=== PATIENT | male | born 1955 | race Caucasian/White ===

== ENCOUNTER 2020-10-13 15:51 | Inpatient (IN) ==
[2020-10-13] MEDS ORDERED: SODIUM CHLORIDE 0.9% 1000ML 1,000 ML IV SCH (16:45)
[2020-10-13] MEDS ORDERED: ONDANSETRON INJ 2 MG/ML 2 ML VIAL IV STA (16:46)
[2020-10-13] MEDS ORDERED: ACETAMINOPHEN 1,000 MG/100 ML VIAL IV STA (16:46)
--- NOTE | 2020-10-13 17:05 | Emergency Department Note ---
History of Present Illness General Chief complaint: Constipation Stated complaint: ABD PAIN - CONSTIPATED - VERY TIRED - BACK ACHE Time Seen by Provider: 10/13/20 16:18 Source: patient Mode of arrival: ambulatory Limitations: no limitations History of Present Illness Provider complaint: Abdominal pain, constipation Onset (ago): day(s) 5 Location: abdomen Radiation: back Severity: moderate Pain Consistency: + colicky Maximum Pain Intensity: 7 Relieved By: + none Exacerbated By: + none Associated symptoms: + chest pain and + loss of appetite Treatments prior to arrival: other This is a 65-year-old male who presents due to concern for abdominal pain and constipation over the course of the week. Patient states the very beginning of the week his usual dose of Ozempic was increased. This was originally started a month ago. He states since that time he had noticed constipation over the course of the week with hard small stools. He states he did have one normal bowel movement yesterday. States accompanying this he has had upper abdominal pain and burning. No prior history of GERD/PUD/IBS. No recent change in diet or significant change in activity. Patient states he is trying to stay well- hydrated. Patient does use marijuana daily. No alcohol use. No other recent medication changes. Denies any other recent illness. Denies blood with his bowel movements. States pain at times is also making him nauseated and does occasionally feel like it comes up into the chest. He states he did check the possible adverse reactions with Ozempic and constipation was listed. Pt seen during a time of high acuity and national emergency pandemic while wearing PPE. Home Medications Medication Instructions Recorded Confirmed Type Medical Marijuana 1 dose INHALATION DIRECTED PRN 05/22/20 10/13/20 History glipizide 5 mg PO QDL 05/22/20 10/13/20 History lisinopril 5 mg PO QDL 05/22/20 10/13/20 History aspirin 0 mg PO DIRECTED PRN 10/13/20 10/13/20 History semaglutide [Ozempic] 0.5 mg SUBCUT WK 10/13/20 10/13/20 History Allergies Allergy/AdvReac Type Severity Reaction Status Date / Time semaglutide [From Ozempic] AdvReac Mild pancreatiti Verified 10/13/20 22:56 s Past Med/Surg History Medical History Chronic back pain Diabetes mellitus, type 2 Hypertension Myocardial Infarction 15 yrs ago> no further issues/ no cath > does not follow cardio Osteoarthritis Prostate cancer 10 yrs ago > surgically removed > no chemo Spinal stenosis Surgical History History of arthroscopy right shoulder History of cataract surgery LEFT History of colonoscopy History of esophagogastroduodenoscopy (EGD) History of lumbar surgery History of prostatectomy History of tonsillectomy History of tooth extraction Family History Mother Diabetes Brother Diabetes Social History Smoking Status: Former smoker Tobacco Type: Cigarettes Second Hand Exposure: Yes ( SMOKES); Hx Alcohol Use: Yes Alcohol type: wine Hx Substance Use: No Preferred Language: Azerbaijani Communication Ability: Effective Moderate Needs Teacher Required: No Beliefs That Will Affect Care: None Current Living Situation: Spouse Feels Safe at Home: Yes Assistive Devices: None Review of Systems See HPI for pertinent positives & negatives. and A total of 10 systems reviewed and were otherwise negative Physical Exam Vital Signs Vital Signs - 24 hr 10/13/20 15:59 10/13/20 17:10 10/13/20 17:56 Temperature 36.8 C Temperature Source Temporal Artery Scan Pulse Rate 94 H 91 H 88 Pulse Rate from SpO2 Sensor 91 H 88 Respiratory Rate 20 19 19 Respiratory Effort / Characteristics Non-Labored Respiratory Depth Normal Blood Pressure 170/94 H 194/114 H 158/106 H Blood Pressure Mean 119 140 123 Pulse Oximetry 95 94 94 Oxygen Delivery Method Room Air Sepsis Recent Fever Within 48 Hours No Sepsis New/Unexplained Change in Mental Status N/A Sepsis Action Taken by Nursing No Action Required 10/13/20 18:00 10/13/20 19:10 10/13/20 19:30 Temperature Temperature Source Pulse Rate 83 88 86 Pulse Rate from SpO2 Sensor 84 88 85 Respiratory Rate 19 26 H 18 Respiratory Effort / Characteristics Respiratory Depth Blood Pressure 152/94 H 160/101 H 159/94 H Blood Pressure Mean 113 120 115 Pulse Oximetry 93 93 93 Oxygen Delivery Method Sepsis Recent Fever Within 48 Hours Sepsis New/Unexplained Change in Mental Status Sepsis Action Taken by Nursing 10/13/20 20:00 Temperature Temperature Source Pulse Rate 79 Pulse Rate from SpO2 Sensor 79 Respiratory Rate 14 Respiratory Effort / Characteristics Respiratory Depth Blood Pressure 155/96 H Blood Pressure Mean 115 Pulse Oximetry 94 Oxygen Delivery Method Sepsis Recent Fever Within 48 Hours Sepsis New/Unexplained Change in Mental Status Sepsis Action Taken by Nursing GENERAL: alert, uncomfortable appearing, well nourished, mild distress, non- toxic EYE EXAM: normal conjunctiva, PERRL and EOM's grossly intact OROPHARYNX: no exudate, no erythema, lips, buccal mucosa, and tongue normal and mucous membranes are moist NECK: supple, no nuchal rigidity, no adenopathy, non-tender LUNGS: Clear to auscultation. Normal chest wall mechanics, no w/r/r HEART: no murmurs, S1 normal and S2 normal ABDOMEN: abdomen soft, mild epigastric discomfort with palpation, normo-active bowel sounds, no masses, no rebound or guarding. Dull to percussion. BACK: Back is symmetrical on inspection and there is no deformity, no midline tenderness, no CVA tenderness. SKIN: no rashes and no bruising UPPER EXTREMITIES: upper extremities are grossly normal. FROM, nml pulses b/l. LOWER EXTREMITIES: No pitting edema. FROM, nml pulses b/l. NEURO EXAM: Normal sensorium, cranial nerves II-XII grossly intact, normal speech, no gross weakness of arms, no gross weakness of legs. Gross sensation intact. Course Course 1735: Updated patient on results, pain improved after medication. 1949: Patient updated on additional results. Still having pain. 2001: Discussed with Dr. Alvarado. Administered Medications Morphine Sulfate (Morphine Sulfate 4 Mg/Ml 1 Ml Carp\Vial) 4 mg IV Q4H PRN PRN Reason: Pain Stop: 10/27/20 22:12 Last Admin: 10/13/20 22:58 Dose: 4 mg Documented by: [id number] Discontinued Medications Famotidine (Famotidine 20mg/5ml Iv Push) 20 mg IV ONE STA Stop: 10/13/20 19:52 Last Admin: 10/13/20 20:09 Dose: 20 mg Documented by: [id number] Fentanyl Citrate (Fentanyl Citrate 100 Mcg/2 Ml Vial) 50 mcg IV Q15M PRN PRN Reason: Pain Stop: 10/27/20 17:36 Last Admin: 10/13/20 20:12 Dose: 50 mcg Documented by: [id number] Hydromorphone HCl (Hydromorphone Inj 0.5 Mg/0.5 Ml Syr) 0.5 mg IV NOW STA Stop: 10/13/20 19:52 Last Admin: 10/13/20 20:11 Dose: 0.5 mg Documented by: [id number] Sodium Chloride (Nss 1000ml) 1,000 mls @ 125 mls/hr IV .Q8H ERICA Stop: 11/12/20 16:44 Last Infusion: 10/13/20 22:26 Dose: 0 mls/hr Documented by: [id number] Admin: 10/13/20 17:09 Dose: 125 mls/hr Documented by: [id number] Acetaminophen (Ofirmev) 1,000 mg in 100 mls @ 400 mls/hr IV NOW STA Stop: 10/13/20 17:00 Last Infusion: 10/13/20 17:48 Dose: 0 mls/hr Documented by: [id number] Admin: 10/13/20 17:09 Dose: 400 mls/hr Documented by: [id number] Magnesium Sulfate/Dextrose (Magnesium Sulfate / D5w) 1 gm in 100 mls @ 100 mls/hr IV NOW STA Stop: 10/13/20 20:52 Last Infusion: 10/13/20 21:53 Dose: 0 mls/hr Documented by: [id number] Admin: 10/13/20 20:11 Dose: 100 mls/hr Documented by: [id number] Lactated Ringer's (Lr) 1,000 mls @ 200 mls/hr IV .Q5H ONE Stop: 10/14/20 01:19 Last Admin: 10/13/20 22:58 Dose: 200 mls/hr Documented by: [id number] Ioversol (Optiray 320 100ml) 95 ml IV ONCE ONE Stop: 10/13/20 18:37 Last Admin: 10/13/20 18:36 Dose: 95 ml Documented by: [id number] Lisinopril (Lisinopril 5 Mg Tab) 5 mg PO NOW ONE Stop: 10/13/20 20:13 Last Admin: 10/13/20 21:42 Dose: 5 mg Documented by: [id number] Morphine Sulfate (Morphine Sulfate 4 Mg/Ml 1 Ml Carp\Vial) 4 mg IV NOW STA Stop: 10/13/20 21:20 Last Admin: 10/13/20 21:42 Dose: 4 mg Documented by: [id number] Ondansetron HCl (Ondansetron Inj 2 Mg/Ml 2 Ml Vial) 4 mg IV NOW STA Stop: 10/13/20 16:47 Last Admin: 10/13/20 17:10 Dose: 4 mg Documented by: [id number] Polyethylene Glycol (Polyethylene (Miralax) 17 Gm Pack) 17 gm PO NOW STA Stop: 10/13/20 21:20 Last Admin: 10/13/20 21:42 Dose: 17 gm Documented by: [id number] Senna/Docusate Sodium (Docusate Sodium/Senna 50/8.6mg Tab) 1 tab PO NOW STA Stop: 10/13/20 20:21 Last Admin: 10/13/20 21:42 Dose: 1 tab Documented by: [id number] Medical Decision Making Differential Diagnosis Differential diagnoses includes but is not limited to gastritis, peptic ulcer disease, GERD, gallbladder disease, pancreatitis, small bowel obstruction, acute coronary syndrome, pericarditis, ischemic bowel, irritable bowel disease, irritable bowel syndrome, appendicitis, diverticulitis, malignancy, hernia, urinary tract infection, torsion, [/ectopic (if female)], perforation, trauma, infectious. Medical Records Attestation: I reviewed the patient's medical records. Home Medications Current Medication List: was personally reviewed by me Laboratory Data Attestation: I reviewed the patient's lab results. Result diagrams: 10/13/20 16:58 10/13/20 16:58 Lab Results 10/13/20 10/13/20 10/13/20 Range/Units 16:58 16:58 16:58 WBC 14.50 H (4.8-10.8) K/uL RBC 4.96 (4.7-6.1) M/uL Hgb 15.7 (14.0-18.0) g/dL Hct 43.7 (42-52) % MCV 88.1 (80-100) fL MCH 31.7 (25-34) pg MCHC 35.9 (32-36) g/dL RDW Std Deviation 40.1 (36.4-46.3) fL RDW Coeff of [place]ola 12.6 (11.5-14.5) % Plt Count 310 (130-400) K/uL MPV 10.9 H (7.4-10.4) fL Immature Gran % (Auto) 0.3 % Neut % (Auto) 68.3 % Lymph % (Auto) 23.0 % [place] % (Auto) 7.4 % Eos % (Auto) 0.9 % Baso % (Auto) 0.1 % Neut # (Auto) 9.90 H (1.4-6.5) K/uL Lymph # (Auto) 3.33 (1.2-3.4) K/uL [place] # (Auto) 1.08 H (0.11-0.59) K/uL Eos # (Auto) 0.13 (0-0.5) K/uL Baso # (Auto) 0.02 (0-0.2) K/uL Immature Gran # (Auto) 0.04 H (0.00-0.02) K/uL Sodium 132 L (136-145) mmol/L Potassium 4.0 (3.5-5.1) mmol/L Chloride 99 (98-107) mmol/L Carbon Dioxide 29 (21-32) mmol/L Anion Gap 4.0 (3-11) BUN 13 (7-18) mg/dl Creatinine 0.85 (0.6-1.4) mg/dl Est Cr Clr Drug Dosing 95.5 ml/min Est GFR ( Amer) 105.2 ml/min Est GFR (Non-Af Amer) 90.8 ml/min BUN/Creatinine Ratio 15.4 (10-20) Glucose 194 H (70-99) mg/dl Lactate 1.5 (0.4-2.0) mmol/L Calcium 9.2 (8.5-10.1) mg/dl Magnesium 1.7 L (1.8-2.4) mg/dl Total Bilirubin 0.4 (0.2-1) mg/dl AST 14 L (15-37) U/L ALT 32 (12-78) U/L Alkaline Phosphatase 108 (45-117) U/L Troponin I < 0.015 (0-0.045) ng/ml NT-Pro-B Natriuret Pep 54 (0-900) pg/ml Total Protein 7.6 (6.4-8.2) gm/dl Albumin 3.7 (3.4-5.0) gm/dl Globulin 3.9 (2.5-4.0) gm/dl Albumin/Globulin Ratio 0.9 (0.9-2) Triglycerides 362 H (0-150) mg/dl Lipase 774 H (73-393) U/L COVID-19 Eval Order SARS-CoV-2 (PCR) (Negative) 10/13/20 10/13/20 Range/Units 20:17 20:17 WBC (4.8-10.8) K/uL RBC (4.7-6.1) M/uL Hgb (14.0-18.0) g/dL Hct (42-52) % MCV (80-100) fL MCH (25-34) pg MCHC (32-36) g/dL RDW Std Deviation (36.4-46.3) fL RDW Coeff of Paola (11.5-14.5) % Plt Count (130-400) K/uL MPV (7.4-10.4) fL Immature Gran % (Auto) % Neut % (Auto) % Lymph % (Auto) % [place] % (Auto) % Eos % (Auto) % Baso % (Auto) % Neut # (Auto) (1.4-6.5) K/uL Lymph # (Auto) (1.2-3.4) K/uL [place] # (Auto) (0.11-0.59) K/uL Eos # (Auto) (0-0.5) K/uL Baso # (Auto) (0-0.2) K/uL Immature Gran # (Auto) (0.00-0.02) K/uL Sodium (136-145) mmol/L Potassium (3.5-5.1) mmol/L Chloride (98-107) mmol/L Carbon Dioxide (21-32) mmol/L Anion Gap (3-11) BUN (7-18) mg/dl Creatinine (0.6-1.4) mg/dl Est Cr Clr Drug Dosing ml/min Est GFR ( Amer) ml/min Est GFR (Non-Af Amer) ml/min BUN/Creatinine Ratio (10-20) Glucose (70-99) mg/dl Lactate (0.4-2.0) mmol/L Calcium (8.5-10.1) mg/dl Magnesium (1.8-2.4) mg/dl Total Bilirubin (0.2-1) mg/dl AST (15-37) U/L ALT (12-78) U/L Alkaline Phosphatase (45-117) U/L Troponin I (0-0.045) ng/ml NT-Pro-B Natriuret Pep (0-900) pg/ml Total Protein (6.4-8.2) gm/dl Albumin (3.4-5.0) gm/dl Globulin (2.5-4.0) gm/dl Albumin/Globulin Ratio (0.9-2) Triglycerides (0-150) mg/dl Lipase (73-393) U/L COVID-19 Eval Order Covid19 at [facility] SARS-CoV-2 (PCR) NEGATIVE (Negative) Imaging Data Radiologist's Impression: Chest X-Ray 10/13/20 16:41 SINGLE VIEW CHEST CLINICAL HISTORY: Atypical chest pain FINDINGS: An AP, portable, upright chest radiograph is compared to chest x-ray and chest CT dated 08/28/2006. The examination is degraded by portable technique and apical lordotic positioning. The heart is mildly enlarged noting atherosclerotic calcification of the thoracic aorta. Foci of platelike atelectasis are present at both lung bases. There is no airspace consolidation typical for pneumonia or large pleural effusion. No pneumothorax is seen. The bony thorax is grossly intact. Postoperative change is noted in the right shoulder. IMPRESSION: Mild cardiomegaly with no acute cardiopulmonary abnormality. ACT 112: Negative or not required by law. Electronically signed by: Jason Almanza M.D. 10/13/2020 5:19 PM Abdomen/Pelvis CT 10/13/20 17:37 CT SCAN OF THE ABDOMEN AND PELVIS WITH IV CONTRAST CLINICAL HISTORY: Epigastric abdominal pain. Elevated lipase. COMPARISON STUDY: No priors. TECHNIQUE: Following the IV administration of 95 cc of Optiray 320, CT scan of the abdomen and pelvis is performed from the lung bases to the proximal femora. Images are reviewed in the axial, sagittal, and coronal planes. IV contrast was administered without complication. A dose lowering technique was utilized adhering to the principles of ALARA. CT DOSE: 641.64 mGy.cm FINDINGS: Lung bases: The heart is normal in size and without pericardial effusion. The coronary arteries are densely calcified. There is a small hiatal hernia. Circumferential wall thickening is suggested in the distal esophagus. The lung bases are clear noting bibasilar scarring/atelectasis. Liver: The contrast-enhanced liver is mildly enlarged measuring over 18 cm in length. The liver demonstrates diffusely diminished attenuation consistent with hepatic steatosis. There is no intrahepatic biliary ductal dilatation. The hepatic veins and portal veins are patent. Gallbladder: A large calcified gallstone measures at least 3.3 cm. There is no CT evidence of acute cholecystitis. Spleen: Normal in size and attenuation. Pancreas: The pancreas is normal in size. Inflammatory changes identified around the pancreatic head and uncinate process. There is trace peripancreatic fluid, and the appearance favors acute pancreatitis. The gland enhances homogeneously. The pancreatic duct is normal in caliber. No organized.] Fluid collection is identified. The splenic vein is patent. Adrenal glands: Low-attenuation left adrenal nodules measure up to 12 mm. These likely represent adenomas but cannot be definitively characterized due to the presence of IV contrast. The right adrenal gland is normal in appearance. Kidneys: The contrast enhanced kidneys are normal in size and without hydronephrosis. The kidneys enhance symmetrically. A 10 mm cyst is noted in the right lower pole. Abdominal vasculature: The abdominal aorta is normal in course and caliber noting advanced atherosclerotic calcification. Bowel: There is moderate colonic diverticulosis without CT evidence of acute diverticulitis. Fecal retention is noted throughout the colon. The appendix is well-visualized and normal. Mild wall thickening is noted in the duodenum adjacent to the pancreatic head. Peritoneum: There is no intraperitoneal free air or abdominal ascites. Lymphadenopathy: Prominent peripancreatic lymph nodes are likely reactive. No pathologically enlarged lymph nodes are seen in the abdomen or pelvis. Pelvic viscera: The prostate gland is surgically absent. The bladder is normal as visualized. Skeletal structures: The skeletal structures are osteopenic. There is a minimal superior endplate compression deformity of L2. Moderate lumbosacral spondylosis is observed. Degenerative sclerosis is noted in the pubic symphysis. No lytic or blastic lesions are seen. IMPRESSION: 1. Findings are typical for acute pancreatitis as detailed above. 2. The gland enhances homogeneously and no organized peripancreatic collection is identified. 3. Wall thickening of the duodenum is likely related to adjacent pancreatitis. 4. Hepatomegaly and hepatic steatosis. 5. Advanced coronary artery calcification. 6. Cholelithiasis. 7. Wall thickening is suggested in the distal esophagus. Correlate clinically for evidence of esophagitis. 8. Colonic diverticulosis without CT evidence of acute diverticulitis. 9. Status post prostatectomy. 10. Additional findings as above. ACT 112: Negative or not required by law. Electronically signed by: Jason Almanza M.D. 10/13/2020 7:25 PM ECG Data Attestation: I personally reviewed and interpreted this ECG as follows: Indication: + abdominal pain Rate (beats per minute): 87 ECG Intervals/blocks: + Normal QRS and + Normal QT ECG [place]: + Normal ECG ST segments: + T-wave inversions (III, aVF) MDM Narrative This is a 65-year-old male who presents due to concern for worsening abdominal pain and concern for constipation. Patient suspicious this may be related to recent increase in his Ozempic for his diabetes. No prior history of gastroparesis, no prior abdominal surgeries. Patient was afebrile and hemodynamically stable. Labs drawn and sent and are reassuring with exception of an elevated lipase. Mild hyperglycemia was noted, no evidence of DKA. Due to this concern as well as risk factors, patient sent for CT imaging. Patient found to have CT evidence of pancreatitis. A single large gallstone was noted however no evidence of concurrent cholecystitis or choledocholithiasis. LFTs within normal limits. Patient with persistent pain and given multiple doses of pain medication as well as antiemetics. Discussed all results with patient and given concern for pain management, transitioning off his Ozempic and continued glycemic control, risk given age and other comorbidities, I feel patient would be best treated as an inpatient. Patient verbalized understanding of all results and was in agreement with plan. Case discussed with hospitalist for additional evaluation and management. I did review side effect profile for Ozempic and it does list constipation, pancreatitis, and elevated lipase among others. An order was placed for continuous cardiac monitoring. The monitor shows a rate of _80_ with normal sinus_ rhythm. Impression & Plan Abdominal pain, Pancreatitis, Cholelithiasis, Adverse drug effect Discharge Plan Visit Data Chief Complaint: Constipation Stated Complaint: ABD PAIN - CONSTIPATED - VERY TIRED - BACK ACHE ED Provider: Argelia Farrar Discharge Problem: Abdominal pain, Pancreatitis, Cholelithiasis, Adverse drug effect Patient Disposition: Admitted As Inpatient Discharge Instructions Interventions: ED Discharge Assessment Last Done: 07/03/21 22:03 Discharge Problem: Abdominal pain Qualifiers: Abdominal location: epigastric Qualified Code(s): R10.13 - Epigastric pain Pancreatitis Qualifiers: Chronicity: acute Pancreatitis type: unspecified pancreatitis type Acute pancreatitis complication: no infection or necrosis Qualified Code(s): K85.90 - Acute pancreatitis without necrosis or infection, unspecified Cholelithiasis Qualifiers: Cholelithiasis location: gallbladder Cholecystitis presence: without cholecystitis Biliary obstruction: without biliary obstruction Qualified Code(s): K80.20 - Calculus of gallbladder without cholecystitis without obstruction Adverse drug effect Qualifiers: Encounter type: initial encounter Qualified Code(s): T50.905A - Adverse effect of unspecified drugs, medicaments and biological substances, initial encounter
[2020-10-13 17:11] LABS: Basophils # (auto) 0.02 K/uL (0-0.2); Basophils % (auto) 0.1 %; Eosinophils # (auto) 0.13 K/uL (0-0.5); Eosinophils % (auto) 0.9 %; Hematocrit (blood only) 43.7 % (42-52); Hemoglobin 15.7 g/dL (14.0-18.0); Immature Granulocytes # (auto) 0.04 K/uL (0.00-0.02); Immature Granulocytes % (auto) 0.3 %; Lymphocytes # (auto) 3.33 K/uL (1.2-3.4); Mean Corpuscular Hemoglobin 31.7 pg (25-34); Mean Corpuscular Hgb Conc 35.9 g/dL (32-36); Mean Corpuscular Volume 88.1 fL (80-100); Mean Platelet Volume 10.9 fL (7.4-10.4); Monocytes # (auto) 1.08 K/uL (0.11-0.59); Monocytes % (auto) 7.4 %; Neutrophils % (auto) 68.3 %; Platelet Count 310 K/uL (130-400); RDW Coefficient of Variation 12.6 % (11.5-14.5); RDW Standard Deviation 40.1 fL (36.4-46.3); Red Blood Count 4.96 M/uL (4.7-6.1)
--- NOTE | 2020-10-13 17:20 | XRay Report ---
SINGLE VIEW CHEST CLINICAL HISTORY: Atypical chest pain FINDINGS: An AP, portable, upright chest radiograph is compared to chest x-ray and chest CT dated 08/11. The examination is degraded by portable technique and apical lordotic positioning. The heart is mildly enlarged noting atherosclerotic calcification of the thoracic aorta. Foci of platelike atel ectasis are present at both lung bases. There is no airspace consolidation typical for pneumonia or l arge pleural effusion. No pneumothorax is seen. The bony thorax is grossly intact. Postoperative andersen ge is noted in the right shoulder. IMPRESSION: Mild cardiomegaly with no acute cardiopulmonary abnormality. ACT 112: Negative or not required by law. Electronically signed by: Jason Almanza M.D. 10/13/2020 5:19 PM
[2020-10-13 17:29] LABS: Alanine Aminotransferase 32 U/L (12-78); Albumin Level 3.7 gm/dl (3.4-5.0); Aspartate Aminotransferase 14 U/L (15-37); BUN Creatinine Ratio 15.4 (10-20); Blood Urea Nitrogen 13 mg/dl (7-18); Calcium 9.2 mg/dl (8.5-10.1); Carbon Dioxide 29 mmol/L (21-32); Chloride 99 mmol/L (98-107); Creatinine Clr Calc Pharmacy 95.5 ml/min; Est GFR (African American) 105.2 ml/min; Est GFR (Non-African American) 90.8 ml/min; Glucose 194 mg/dl (70-99); Lipase 774 U/L (73-393); Magnesium 1.7 mg/dl (1.8-2.4); Sodium 132 mmol/L (136-145)
[2020-10-13 17:35] LABS: Albumin Globulin Ratio 0.9 (0.9-2); Alkaline Phosphatase 108 U/L (45-117); Bilirubin,Total 0.4 mg/dl (0.2-1); Globulin 3.9 gm/dl (2.5-4.0); NT Pro B Type Natriuretic Pept 54 pg/ml (0-900); Total Protein 7.6 gm/dl (6.4-8.2); Troponin I < 0.015 ng/ml (0-0.045)
[2020-10-13] MEDS ORDERED: fentaNYL citrate 100 MCG/2 ML VIAL IV PRN (17:37)
[2020-10-13] MEDS ORDERED: OPTIRAY 320 100ml IV ONE (18:36)
--- NOTE | 2020-10-13 19:26 | CT Scan Report ---
CT SCAN OF THE ABDOMEN AND PELVIS WITH IV CONTRAST CLINICAL HISTORY: Epigastric abdominal pain. Elevated lipase. COMPARISON STUDY: No priors. TECHNIQUE: Following the IV administration of 95 cc of Optiray 320, CT scan of the abdomen and pelvi s is performed from the lung bases to the proximal femora. Images are reviewed in the axial, sagittal , and coronal planes. IV contrast was administered without complication. A dose lowering technique wa s utilized adhering to the principles of ALARA. CT DOSE: 641.64 mGy.cm FINDINGS: Lung bases: The heart is normal in size and without pericardial effusion. The coronary arteries are d ensely calcified. There is a small hiatal hernia. Circumferential wall thickening is suggested in the distal esophagus. The lung bases are clear noting bibasilar scarring/atelectasis. Liver: The contrast-enhanced liver is mildly enlarged measuring over 18 cm in length. The liver demon strates diffusely diminished attenuation consistent with hepatic steatosis. There is no intrahepatic biliary ductal dilatation. The hepatic veins and portal veins are patent. Gallbladder: A large calcified gallstone measures at least 3.3 cm. There is no CT evidence of acute c holecystitis. Spleen: Normal in size and attenuation. Pancreas: The pancreas is normal in size. Inflammatory changes identified around the pancreatic head and uncinate process. There is trace peripancreatic fluid, and the appearance favors acute pancreatit is. The gland enhances homogeneously. The pancreatic duct is normal in caliber. No organized.] Fluid collection is identified. The splenic vein is patent. Adrenal glands: Low-attenuation left adrenal nodules measure up to 12 mm. These likely represent myron omas but cannot be definitively characterized due to the presence of IV contrast. The right adrenal g land is normal in appearance. Kidneys: The contrast enhanced kidneys are normal in size and without hydronephrosis. The kidneys enh ance symmetrically. A 10 mm cyst is noted in the right lower pole. Abdominal vasculature: The abdominal aorta is normal in course and caliber noting advanced atheroscle rotic calcification. Bowel: There is moderate colonic diverticulosis without CT evidence of acute diverticulitis. Fecal re tention is noted throughout the colon. The appendix is well-visualized and normal. Mild wall thicken ing is noted in the duodenum adjacent to the pancreatic head. Peritoneum: There is no intraperitoneal free air or abdominal ascites. Lymphadenopathy: Prominent peripancreatic lymph nodes are likely reactive. No pathologically enlarged lymph nodes are seen in the abdomen or pelvis. Pelvic viscera: The prostate gland is surgically absent. The bladder is normal as visualized. Skeletal structures: The skeletal structures are osteopenic. There is a minimal superior endplate com pression deformity of L2. Moderate lumbosacral spondylosis is observed. Degenerative sclerosis is not ed in the pubic symphysis. No lytic or blastic lesions are seen. IMPRESSION: 1. Findings are typical for acute pancreatitis as detailed above. 2. The gland enhances homogeneously and no organized peripancreatic collection is identified. 3. Wall thickening of the duodenum is likely related to adjacent pancreatitis. 4. Hepatomegaly and hepatic steatosis. 5. Advanced coronary artery calcification. 6. Cholelithiasis. 7. Wall thickening is suggested in the distal esophagus. Correlate clinically for evidence of esophag itis. 8. Colonic diverticulosis without CT evidence of acute diverticulitis. 9. Status post prostatectomy. 10. Additional findings as above. ACT 112: Negative or not required by law. Electronically signed by: Jason Almanza M.D. 10/13/2020 7:25 PM
[2020-10-13] MEDS ORDERED: HYDROmorphone INJ 0.5 MG/0.5 ML SYR IV STA (19:51)
[2020-10-13] MEDS ORDERED: FAMOTIDINE 20MG/5ML IV PUSH IV STA (19:51)
[2020-10-13] MEDS ORDERED: MAGNESIUM SULFATE / D5W 1 GM/100 ML BAG IV STA (19:53)
[2020-10-13] MEDS ORDERED: lisinopril 5 MG TAB PO ONE (20:12)
[2020-10-13] MEDS ORDERED: DOCUSATE SODIUM/SENNA 50/8.6MG TAB PO STA (20:20)
[2020-10-13] MEDS ORDERED: LACTATED RINGER'S 1,000 ML IV ONE (20:20)
[2020-10-13 20:30] LABS: Triglycerides 362 mg/dl (0-150)
[2020-10-13] MEDS ORDERED: POLYETHYLENE (MIRALAX) 17 GM PACK PO PRN (21:19)
[2020-10-13] MEDS ORDERED: POLYETHYLENE (MIRALAX) 17 GM PACK PO STA (21:19)
[2020-10-13] MEDS ORDERED: MoRPHine SULFATE 4 MG/ML 1 ML CARP\\VIAL IV STA (21:19)
--- NOTE | 2020-10-13 21:24 | History & Physical Report ---
Date of Service October 13, 2020 Assessment & Plan (1) Abdominal pain: Multifactorial : Acute pancreatitis ? Recent GLP-1 agonist dose increase, possible biliary etiology given cholelithiasis hx Esophagitis secondary to NSAID use Constipation hx CAD as per records (on the basis of old EKG findings of prior heart attack as per patient, no history cardiac catheterizations) hypertension, elevated secondary discomfort Hyperlipidemia as per records DM2 on oral medications and Ozempic, suboptimal control as of outpatient hemoglobin A1c of 8.16 January 2020 chronic pain/chronic cannabis use chronic hyponatremia prostate cancer status post surgery past tobacco abuse OBS as per new InterQual criteria as per case management GMF IVF, bowel rest, analgesia Hold Ozempic for now PPI for esophagitis Patient counseled regarding GI irritation and excessive NSAID intake. Bowel regimen GI consult Re: Abdominal pain, abnormal CT Titrate home lisinopril Basal insulin adjusted for n.p.o. status, ISS BG goal 1 10-1 40, update hemoglobin A1c DVT prophylaxis. Lovenox subcu Full code Patient requesting updates from providers. Ms. Soni Serrano, contact #[phone]. Text document was generated using [employer] voice recognition software. It may contain grammatical or spelling errors. Kindly contact undersigned for clarification of any documentation item in question. History of Present Illness Chief Complaint: Abdominal pain Primary Care Provider: Aubree Moura PA-C History obtained from patient, family, and records. Medical history significant for CAD, hypertension, hyperlipidemia, DM2 on oral medications, cholelithiasis, chronic pain, chronic cannabis use, chronic hyponatremia, prostate cancer status post surgery past tobacco abuse. Last March 2020, patient seen at [facility] ER for epigastric pain following food overindulgence. Gallbladder ultrasound showed cholelithiasis. CT abdomen pelvis showed cholelithiasis with gallbladder distention and questionable gallbladder wall thickening. Patient discharged from the ER. Outpatient surgery consultation for biliary colic recommended as per patient recollection. Patient started on Ozempic 0.25 mg subcutaneous weekly about 5 weeks ago for poorly controlled DM. Weekly dose increased to 0.5 mg last week with BSG of 300s at home from time to time. A few days later, patient noted intermittent epigastric pain somewhat burning with some radiation to the chest. No fever, no chills, no S OB. Admits to daily intake of 2 tablets of aspirin 500 mg for chronic pain for some time now. No black/bloody stools. No BM the last 4 days which is unusual for him. No BM despite stool softener and home enema administration. No unusual weight loss. No recent EtOH intake as per patient. Patient brought to ER by with more constant discomfort. Medical History as above No prior EGDs. Surgical History : Prostatectomy, knee surgery left shoulder surgery Family History : Lung cancer Personal/Social history : Past tobacco abuse, occasional EtOH intake, [employer] business Allergies Allergy/AdvReac Type Severity Reaction Status Date / Time semaglutide [From Ozempic] AdvReac Mild pancreatiti Verified 10/13/20 22:56 s Home Medications Medication Instructions Recorded Confirmed Type Medical Marijuana 1 dose INHALATION DIRECTED PRN 05/22/20 10/13/20 History glipizide 5 mg PO QDL 05/22/20 10/13/20 History lisinopril 5 mg PO QDL 05/22/20 10/13/20 History aspirin 0 mg PO DIRECTED PRN 10/13/20 10/13/20 History semaglutide [Ozempic] 0.5 mg SUBCUT WK 10/13/20 10/13/20 History Past Med/Surg History Medical History Chronic back pain Diabetes mellitus, type 2 Hypertension Myocardial Infarction 15 yrs ago> no further issues/ no cath > does not follow cardio Osteoarthritis Prostate cancer 10 yrs ago > surgically removed > no chemo Spinal stenosis Surgical History History of arthroscopy right shoulder History of cataract surgery LEFT History of colonoscopy History of esophagogastroduodenoscopy (EGD) History of lumbar surgery History of prostatectomy History of tonsillectomy History of tooth extraction Family History Mother Diabetes Brother Diabetes Social History Smoking Status: Former smoker Tobacco Type: Cigarettes Second Hand Exposure: No; Do You Dip or Chew Tobacco: No; Tobacco Cessation Education Requested by Patient: No Hx Alcohol Use: Yes Alcohol type: beer Hx Substance Use: Yes Last Used Substance: Days (ago) Substance Use Type Other:: ONLY MEDICAL VIJAY Preferred Language: Latvian Communication Ability: Effective Edi Consultant Required: No Beliefs That Will Affect Care: Adventist Adventist Beliefs: Sabianist (Uatsdin). Current Living Situation: Spouse Other Information That Helps Us Care for You: No Feels Safe at Home: Yes Safety Concerns: Feels Safe At This Time Assistive Devices: None Review of Systems Review of Systems: As per HPI, all 10 systems reviewed, all other ROS negative Physical Exam Physical Exam: GENERAL: Pleasant, slightly uncomfortable, no respiratory distress SKIN: Normal color, warm HEENT: [place] palpebral conjunctivae, no ptosis, dry buccal mucosa NECK : Supple, no tenderness CHEST : CTA, no tenderness HEART : RRR, no obvious murmurs ABDOMEN: Some distention, epigastric tenderness EXTREMITIES : No LE swelling/tenderness, no other conspicuous deformities noted NEUROLOGIC : Coherent, no facial asymmetry, no other gross focality Results & Data Results & Data ([facility]) Vital Signs (Past 12 Hours) Vital Signs Temp Pulse Resp BP Pulse Ox 10/13/20 20:00 79 14 155/96 H 94 10/13/20 19:30 86 18 159/94 H 93 10/13/20 19:10 88 26 H 160/101 H 93 10/13/20 18:00 83 19 152/94 H 93 10/13/20 17:56 88 19 158/106 H 94 10/13/20 17:10 91 H 19 194/114 H 94 10/13/20 15:59 36.8 C 94 H 20 170/94 H 95 Laboratory Results Laboratory Results WBC 14.50 K/uL (4.8-10.8) H 10/13/20 16:58 RBC 4.96 M/uL (4.7-6.1) 10/13/20 16:58 Hgb 15.7 g/dL (14.0-18.0) 10/13/20 16:58 Hct 43.7 % (42-52) 10/13/20 16:58 MCV 88.1 fL (80-100) 10/13/20 16:58 MCH 31.7 pg (25-34) 10/13/20 16:58 MCHC 35.9 g/dL (32-36) 10/13/20 16:58 RDW Std Deviation 40.1 fL (36.4-46.3) 10/13/20 16:58 RDW Coeff of [place] 12.6 % (11.5-14.5) 10/13/20 16:58 Plt Count 310 K/uL (130-400) 10/13/20 16:58 MPV 10.9 fL (7.4-10.4) H 10/13/20 16:58 Immature Gran % (Auto) 0.3 % 10/13/20 16:58 Neut % (Auto) 68.3 % 10/13/20 16:58 Lymph % (Auto) 23.0 % 10/13/20 16:58 [place] % (Auto) 7.4 % 10/13/20 16:58 Eos % (Auto) 0.9 % 10/13/20 16:58 Baso % (Auto) 0.1 % 10/13/20 16:58 Neut # (Auto) 9.90 K/uL (1.4-6.5) H 10/13/20 16:58 Lymph # (Auto) 3.33 K/uL (1.2-3.4) 10/13/20 16:58 [place] # (Auto) 1.08 K/uL (0.11-0.59) H 10/13/20 16:58 Eos # (Auto) 0.13 K/uL (0-0.5) 10/13/20 16:58 Baso # (Auto) 0.02 K/uL (0-0.2) 10/13/20 16:58 Immature Gran # (Auto) 0.04 K/uL (0.00-0.02) H 10/13/20 16:58 Sodium 132 mmol/L (136-145) L 10/13/20 16:58 Potassium 4.0 mmol/L (3.5-5.1) 10/13/20 16:58 Chloride 99 mmol/L (98-107) 10/13/20 16:58 Carbon Dioxide 29 mmol/L (21-32) 10/13/20 16:58 Anion Gap 4.0 (3-11) 10/13/20 16:58 BUN 13 mg/dl (7-18) 10/13/20 16:58 Creatinine 0.85 mg/dl (0.6-1.4) 10/13/20 16:58 Est Cr Clr Drug Dosing 95.5 ml/min 10/13/20 16:58 Est GFR ( Amer) 105.2 ml/min 10/13/20 16:58 Est GFR (Non-Af Amer) 90.8 ml/min 10/13/20 16:58 BUN/Creatinine Ratio 15.4 (10-20) 10/13/20 16:58 Glucose 194 mg/dl (70-99) H 10/13/20 16:58 Lactate 1.5 mmol/L (0.4-2.0) 10/13/20 16:58 Calcium 9.2 mg/dl (8.5-10.1) 10/13/20 16:58 Magnesium 1.7 mg/dl (1.8-2.4) L 10/13/20 16:58 Total Bilirubin 0.4 mg/dl (0.2-1) 10/13/20 16:58 AST 14 U/L (15-37) L 10/13/20 16:58 ALT 32 U/L (12-78) 10/13/20 16:58 Alkaline Phosphatase 108 U/L (45-117) 10/13/20 16:58 Troponin I < 0.015 ng/ml (0-0.045) 10/13/20 16:58 NT-Pro-B Natriuret Pep 54 pg/ml (0-900) 10/13/20 16:58 Total Protein 7.6 gm/dl (6.4-8.2) 10/13/20 16:58 Albumin 3.7 gm/dl (3.4-5.0) 10/13/20 16:58 Globulin 3.9 gm/dl (2.5-4.0) 10/13/20 16:58 Albumin/Globulin Ratio 0.9 (0.9-2) 10/13/20 16:58 Triglycerides 362 mg/dl (0-150) H 10/13/20 16:58 Lipase 774 U/L (73-393) H 10/13/20 16:58 COVID-19 Eval Order Covid19 at [facility] 10/13/20 20:17 SARS-CoV-2 (PCR) NEGATIVE (Negative) 10/13/20 20:17 Impressions Chest X-Ray 10/13/20 16:41 SINGLE VIEW CHEST CLINICAL HISTORY: Atypical chest pain FINDINGS: An AP, portable, upright chest radiograph is compared to chest x-ray and chest CT dated 08/28/2006. The examination is degraded by portable technique and apical lordotic positioning. The heart is mildly enlarged noting atheroscl erotic calcification of the thoracic aorta. Foci of platelike atelectasis are present at both lung bases. There is no airspace consolidation typical for pneumonia or large pleural effusion. No pneumothorax is seen. The bony thorax is grossly intact. Postoperative change is noted in the right shoulder. IMPRESSION: Mild cardiomegaly with no acute cardiopulmonary abnormality. ACT 112: Negative or not required by law. Electronically signed by: Jason Almanza M.D. 10/13/2020 5:19 PM Abdomen/Pelvis CT 10/13/20 17:37 CT SCAN OF THE ABDOMEN AND PELVIS WITH IV CONTRAST CLINICAL HISTORY: Epigastric abdominal pain. Elevated lipase. COMPARISON STUDY: No priors. TECHNIQUE: Following the IV administration of 95 cc of Optiray 320, CT scan of the abdomen and pelvis is performed from the lung bases to the proximal femora. Images are reviewed in the axial, sagittal, and coronal planes. IV contrast was administered without complication. A dose lowering technique was utilized adhering to the principles of ALARA. CT DOSE: 641.64 mGy.cm FINDINGS: Lung bases: The heart is normal in size and without pericardial effusion. The coronary arteries are densely calcified. There is a small hiatal hernia. Circumferential wall thickening is suggested in the distal esophagus. The lung bases are clear noting bibasilar scarring/atelectasis. Liver: The contrast-enhanced liver is mildly enlarged measuring over 18 cm in length. The liver demonstrates diffusely diminished attenuation consistent with hepatic steatosis. There is no intrahepatic biliary ductal dilatation. The hepatic veins and portal veins are patent. Gallbladder: A large calcified gallstone measures at least 3.3 cm. There is no CT evidence of acute cholecystitis. Spleen: Normal in size and attenuation. Pancreas: The pancreas is normal in size. Inflammatory changes identified around the pancreatic head and uncinate process. There is trace peripancreatic fluid, and the appearance favors acute pancreatitis. The gland enhances homogeneously. The pancreatic duct is normal in caliber. No organized.] Fluid collection is identified. The splenic vein is patent. Adrenal glands: Low-attenuation left adrenal nodules measure up to 12 mm. These likely represent adenomas but cannot be definitively characterized due to the presence of IV contrast. The right adrenal gland is normal in appearance. Kidneys: The contrast enhanced kidneys are normal in size and without hydronephrosis. The kidneys enhance symmetrically. A 10 mm cyst is noted in the right lower pole. Abdominal vasculature: The abdominal aorta is normal in course and caliber noting advanced atherosclerotic calcification. Bowel: There is moderate colonic diverticulosis without CT evidence of acute diverticulitis. Fecal retention is noted throughout the colon. The appendix is well-visualized and normal. Mild wall thickening is noted in the duodenum adjacent to the pancreatic head. Peritoneum: There is no intraperitoneal free air or abdominal ascites. Lymphadenopathy: Prominent peripancreatic lymph nodes are likely reactive. No pathologically enlarged lymph nodes are seen in the abdomen or pelvis. Pelvic viscera: The prostate gland is surgically absent. The bladder is normal as visualized. Skeletal structures: The skeletal structures are osteopenic. There is a minimal superior endplate compression deformity of L2. Moderate lumbosacral spondylosis is observed. Degenerative sclerosis is noted in the pubic symphysis. No lytic or blastic lesions are seen. IMPRESSION: 1. Findings are typical for acute pancreatitis as detailed above. 2. The gland enhances homogeneously and no organized peripancreatic collection is identified. 3. Wall thickening of the duodenum is likely related to adjacent pancreatitis. 4. Hepatomegaly and hepatic steatosis. 5. Advanced coronary artery calcification. 6. Cholelithiasis. 7. Wall thickening is suggested in the distal esophagus. Correlate clinically for evidence of esophagitis. 8. Colonic diverticulosis without CT evidence of acute diverticulitis. 9. Status post prostatectomy. 10. Additional findings as above. ACT 112: Negative or not required by law. Electronically signed by: Jason Almanza M.D. 10/13/2020 7:25 PM Diagnostic Findings EKG as per my interpretation: Rate 85, NSR, normal axis, inferior infarct, no ischemia (1) Abdominal pain Abdominal location: epigastric Qualified Code(s): R10.13 - Epigastric pain
[2020-10-13] MEDS ORDERED: GLUCOSE 10 TABS/TUBE PO PRN (22:13)
[2020-10-13] MEDS ORDERED: oxyCODONE HCL IR 5 MG TAB (IMMEDIATE RELEASE) PO PRN (22:13)
[2020-10-13] MEDS ORDERED: MoRPHine SULFATE 4 MG/ML 1 ML CARP\\VIAL IV PRN (22:13)
[2020-10-13] MEDS ORDERED: DEXTROSE 50% 50 ML SYRINGE IV PRN (22:13)
[2020-10-13] MEDS ORDERED: CARBOHYDRATES FOR HYPOGLYCEMIA PO PRN (22:13)
[2020-10-13] MEDS ORDERED: GLUCOSE 40% GEL 15 GM TUBE PO PRN (22:13)
[2020-10-13] MEDS ORDERED: GLUCAGON FOR INJ 1 MG VIAL SQ PRN (22:13)
[2020-10-13] MEDS ORDERED: MEDICAL MARIJUANA INH PRN (22:33)
[2020-10-13] MEDS ORDERED: LACTULOSE SYRUP 30 GM/45 ML UDP PO ONE (22:45)
[2020-10-13] MEDS ORDERED: INSULIN GLARGINE SOLOSTAR 100 UNITS/ML 3 ML PEN SC SCH (23:00)
[2020-10-13] MEDS: LACTATED RINGER'S 1,000 ML IV SCH (23:42)
[2020-10-13] MEDS: INSULIN ASPART 100 UNITS/ML 3 ML PEN SC SCH (23:44)
[2020-10-14 00:17] LABS: Appearance Urine Clear (Clear); Bilirubin Urine Negative (Negative); Blood Urine Negative (Negative); Color Urine Yellow; Glucose Urine UA Negative (Negative); Ketones Urine Negative (Negative); Leukocyte Esterase Urine Negative (Negative); Nitrite Urine Negative (Negative); Protein Urine Negative (Negative); Specific Gravity Urine 1.021 (1.000-1.030); Urobilinogen Urine Negative (Negative)
[2020-10-14 00:36] LABS: Amphetamines+Metham, Urine Neg (Neg); Barbiturates, Urine Neg (Neg); Benzodiazepine, Urine Pos (Neg); Cocaine, Urine Neg (Neg); MDMA (Ecstacy), Urine Neg (Neg); Methadone, Urine Neg (Neg); Opiate, Urine Pos (Neg); Phencyclidine, Urine Neg (Neg)
[2020-10-14] MEDS: MoRPHine SULFATE 4 MG/ML 1 ML CARP\\VIAL IV PRN ×4 (02:24→20:51)
[2020-10-14] MEDS: PROMETHAZINE HCL 12.5 MG in SODIUM CHLORIDE 0.9% 50 ML IV PRN ×2 (03:18→14:50)
[2020-10-14] MEDS ORDERED: LACTULOSE SYRUP 30 GM/45 ML UDP PO STA (03:55)
[2020-10-14] MEDS: lisinopril 10 MG TAB PO SCH (04:35)
[2020-10-14] MEDS: LACTATED RINGER'S 1,000 ML IV SCH ×4 (04:47→19:48)
[2020-10-14] MEDS: INSULIN ASPART 100 UNITS/ML 3 ML PEN SC SCH ×4 (06:17→21:17)
[2020-10-14 07:37] LABS: Basophils # (auto) 0.02 K/uL (0-0.2); Basophils % (auto) 0.2 %; Eosinophils # (auto) 0.11 K/uL (0-0.5); Hematocrit (blood only) 41.4 % (42-52); Hemoglobin 14.4 g/dL (14.0-18.0); Immature Granulocytes # (auto) 0.01 K/uL (0.00-0.02); Immature Granulocytes % (auto) 0.1 %; Lymphocytes # (auto) 3.19 K/uL (1.2-3.4); Lymphocytes % (auto) 29.6 %; Mean Corpuscular Hemoglobin 30.9 pg (25-34); Mean Corpuscular Hgb Conc 34.8 g/dL (32-36); Mean Corpuscular Volume 88.8 fL (80-100); Mean Platelet Volume 10.6 fL (7.4-10.4); Monocytes # (auto) 0.72 K/uL (0.11-0.59); Monocytes % (auto) 6.7 %; Neutrophils # (auto) 6.74 K/uL (1.4-6.5); Neutrophils % (auto) 62.4 %; Platelet Count 260 K/uL (130-400); RDW Coefficient of Variation 12.6 % (11.5-14.5); Red Blood Count 4.66 M/uL (4.7-6.1); White Blood Count 10.79 K/uL (4.8-10.8)
[2020-10-14] MEDS ORDERED: PROMETHAZINE HCL 25 MG SUPP PR PRN (08:02)
[2020-10-14] MEDS ORDERED: ONDANSETRON INJ 2 MG/ML 2 ML VIAL IV PRN (08:02)
[2020-10-14 08:03] LABS: Albumin Level 3.4 gm/dl (3.4-5.0); BUN Creatinine Ratio 13.2 (10-20); Calcium 8.8 mg/dl (8.5-10.1); Creatinine Clr Calc Pharmacy 108.2 ml/min; Est GFR (African American) 110.8 ml/min; Est GFR (Non-African American) 95.6 ml/min; Magnesium 1.8 mg/dl (1.8-2.4); Potassium 4.2 mmol/L (3.5-5.1)
[2020-10-14 08:05] LABS: Bilirubin,Total 0.5 mg/dl (0.2-1); Globulin 3.6 gm/dl (2.5-4.0)
[2020-10-14] MEDS: PANTOprazole 40 MG TAB PO SCH (08:24)
[2020-10-14] MEDS: ENOXAPARIN INJ 40 MG/0.4 ML SYR SQ SCH (08:25)
[2020-10-14] MEDS ORDERED: lisinopril 10 MG TAB PO SCH (11:30)
--- NOTE | 2020-10-14 12:01 | Gastrointestinal Consultation ---
Date of Consultation October 14, 2020 Assessment & Plan (1) Abdominal pain: History of Present Illness Attending Physician: Sally Prater, Pt is 65 yo M admit with severe constant epigastric pain rad to back, associated with nausea. Lipase 2 x ULN, CT with mild fluid around HOP. LFT's WNL. CT shows large Ca gallstone with no clive dil. H/o CP in March that was thought to be biliary at out side hospital. No tobacco, EtOH. + chronic heavy MJ use. Began Ozempic about 4 weeks ago, dose increased 2 days prior to onset of pain. Also reports new onset constipation since starting Ozempic. Given fluids since admit. Since admit, feels much better with marked improvement in pain. Kaley liquid diet s difficulty. Allergies Allergy/AdvReac Type Severity Reaction Status Date / Time semaglutide [From Ozempic] AdvReac Mild pancreatiti Verified 10/13/20 22:56 s Home Medications Medication Instructions Recorded Confirmed Type Medical Marijuana 1 dose INHALATION DIRECTED PRN 05/22/20 10/13/20 History glipizide 5 mg PO QDL 05/22/20 10/13/20 History lisinopril 5 mg PO QDL 05/22/20 10/13/20 History aspirin 0 mg PO DIRECTED PRN 10/13/20 10/13/20 History semaglutide [Ozempic] 0.5 mg SUBCUT WK 10/13/20 10/13/20 History Patient History Medical History Chronic back pain Diabetes mellitus, type 2 Hypertension Myocardial Infarction 15 yrs ago> no further issues/ no cath > does not follow cardio Osteoarthritis Prostate cancer 10 yrs ago > surgically removed > no chemo Spinal stenosis Surgical History History of arthroscopy right shoulder History of cataract surgery LEFT History of colonoscopy History of esophagogastroduodenoscopy (EGD) History of lumbar surgery History of prostatectomy History of tonsillectomy History of tooth extraction Family History Mother Diabetes Brother Diabetes Social History Smoking Status: Former smoker Tobacco Type: Cigarettes Second Hand Exposure: No; Do You Dip or Chew Tobacco: No; Tobacco Cessation Education Requested by Patient: No Hx Alcohol Use: Yes Alcohol type: beer Hx Substance Use: Yes Last Used Substance: Days (ago) Substance Use Type Other:: ONLY MEDICAL GABYCELIO Preferred Language: Greenlandic Communication Ability: Effective Senior Business Objects Developer Required: No Beliefs That Will Affect Care: Confucianist Confucianist Beliefs: Latter Day (Evangelical). Current Living Situation: Spouse Other Information That Helps Us Care for You: No Feels Safe at Home: Yes Safety Concerns: Feels Safe At This Time Assistive Devices: None Physical Exam Physical Exam: Well appearing, well build, comfortable ENMT: Mouth is mildly dry Respiratory: CTA Cardiovascular: RRR, no murmur, no edema Gastrointestinal (Abdomen): Soft ND, mild tenderness in epigastrium Results & Data ([facility]) Vital Signs (Past 12 Hours) Vital Signs Temp Pulse Resp BP Pulse Ox 10/14/20 07:28 36.3 C L 70 16 158/93 H 95 10/14/20 04:02 36.6 C 70 16 155/89 H 93 (1) Abdominal pain Abdominal location: epigastric Qualified Code(s): R10.13 - Epigastric pain
--- NOTE | 2020-10-14 12:10 | Hospitalist Progress Note ---
Date of Service October 14, 2020 Assessment & Plan (1) Acute pancreatitis: LR overnight, findings consistent with pancreatitis on exam and imaging. Likely related to Ozempic use which should be discontinued at discharge. A1C is 7.9. Discussed MDD insulin, however, this is a big change at this point coming out of the hospital. He was intolerant of metformin in the past. Cont glipizide-consider higher dose at [place] with close MTM follow up next week for adjustment of regimen with primary provider as outpatient when he is feeling better. For now, no other alcohol use reported. He does have cholelithiasis so got surgery consult-no GB removal recommended at this time. He did experience s ome postprandial pain with lunch. Stay an additional night-back down to clears this evening. Cont IVF and pain control as needed overnight. (2) Adverse drug effect: Pancreatitis likely related to Ozempic increase. Would recommend stopping this as above. (3) Cholelithiasis: Per surgery, no GB removal recommended at this time. (4) Cannabis dependence, daily use: uses medical marijuana-advised of the policy for this [facility]. Patient verbalized understanding. (5) Esophagitis: Circumferential wall thickening noted in the distal esophagus on CT a/p, possibly related to high dose aspirin taken daily for some time per prior notes. This is for pain control. Would hold apsirin and continue with protonix. Follow-up with outpatient PCP. (6) Diabetes mellitus, type 2: Hold glipizide, use lantus/Novolog while hspitalized. A1C reflects poor control. (7) Hypertension: at goal, cont home lisinopril. (8) DVT prophylaxis: Lovenox Full Code Dispo-to home when pain improved and tolerating food reliably. Sally Prater DO [facility] Hospitalist Admission and Anticipated Discharge Date Admission Date: October 13, 2020 Subjective 65 yo M experiencing severe epigastric pain and constipation since recent increase in Ozempic. Went from 0.25mg qweek to 0.5mg qweek within the last week prompting onset of symptoms. Workup reveals pancreatitis. No overt choledocholithiasis or LFT elevation. Cholelithiasis present. Patient is having some epigastric post-prandial pain requiring narcotic medication. Encouraged to stay overnight. Patient is agreeable to this. No other fever, bowel changes, chills, chest pain, or shortness of breath is present. Review of Systems Review of Systems: All systems reviewed & are unremarkable except as noted in Subjective Physical Exam Physical Exam: CONSTITUTIONAL: WNWD, vitals as above, generally well- appearing EYES: normal conjunctivae, no scleral icterus ENT: external ear and nose normal, MMM RESPIRATORY: clear to auscultation bilaterally, no crackles, rales or wheezes, normal respiratory effort CARDIOVASCULAR: regular rate and rhythm, S1 and 2 heard without murmurs, gallops or rubs, no JVD, no peripheral edema GASTROINTESTINAL: normal bowel sounds, soft, epigastric TTP, nondistended. No CVA tenderness. MUSCULOSKELETAL: strength 5/5 throughout, head is normocephalic and atraumatic SKIN: warm and dry NEUROLOGIC: CN 2-12 grossly intact, no sensory deficit, normal cognition, normal speech, no tremor PSYCHIATRIC: alert cooperative and oriented to person, place and time. Results & Data Results & Data ([facility]) Vital Signs (Past 12 Hours) Vital Signs Temp Pulse Resp BP Pulse Ox 10/14/20 07:28 36.3 C L 70 16 158/93 H 95 10/14/20 04:02 36.6 C 70 16 155/89 H 93 Laboratory Results Short CBC 10/13/20 10/14/20 Range/Units 16:58 07:19 WBC 14.50 H 10.79 (4.8-10.8) K/uL Hgb 15.7 14.4 (14.0-18.0) g/dL Hct 43.7 41.4 L (42-52) % Plt Count 310 260 (130-400) K/uL BMP 10/13/20 10/14/20 16:58 07:19 Sodium 132 L 132 L Potassium 4.0 4.2 Chloride 99 101 Carbon Dioxide 29 26 BUN 13 10 Creatinine 0.85 0.75 Glucose 194 H 152 H Calcium 9.2 8.8 Cardiac Enzymes 10/13/20 Range/Units 16:58 Troponin I < 0.015 (0-0.045) ng/ml Liver Function 10/13/20 10/14/20 Range/Units 16:58 07:19 Total Bilirubin 0.4 0.5 (0.2-1) mg/dl AST 14 L 13 L (15-37) U/L ALT 32 26 (12-78) U/L Alkaline Phosphatase 108 94 (45-117) U/L Albumin 3.7 3.4 (3.4-5.0) gm/dl Urine 10/14/20 Range/Units 00:06 Urine Color Yellow Urine Appearance Clear (Clear) Urine pH 5.0 (4.5-7.5) Ur Specific [place] 1.021 (1.000-1.030) Urine Protein Negative (Negative) Urine Glucose (UA) Negative (Negative) Medications Administered Current Inpatient Medications Dextrose (Dextrose 50% 50 Ml Syringe) 25 - 50 ml IV UD PRN; Protocol PRN Reason: Hypoglycemia Protocol Stop: 11/12/20 22:12 Enoxaparin Sodium (Enoxaparin Inj 40 Mg/0.4 Ml Syr) 40 mg SQ QAM [facility] Stop: 11/13/20 08:59 Last Admin: 10/14/20 08:25 Dose: 40 mg Documented by: Glucagon (Glucagon For Inj 1 Mg Vial) 1 mg SQ UD PRN; Protocol PRN Reason: Hypoglycemia Protocol Stop: 11/12/20 22:12 Glucose (Glucose 10 Tabs/Tube) 4 - 8 tabs PO UD PRN; Protocol PRN Reason: Hypoglycemia Protocol Stop: 11/12/20 22:12 Glucose (Glucose 40% Gel 15 Gm Tube) 15 - 30 gm PO UD PRN; Protocol PRN Reason: Hypoglycemia Protocol Stop: 11/12/20 22:12 Promethazine HCl 12.5 mg/ (Sodium Chloride) 50.5 mls @ 202 mls/hr IV Q6H PRN PRN Reason: Nausea And Vomiting Stop: 11/12/20 22:12 Last Infusion: 10/14/20 03:33 Dose: Infused Documented by: Lactated Ringer's (Lr) 1,000 mls @ 150 mls/hr IV .Q6H40M [facility] Stop: 10/15/20 01:34 Insulin Aspart (Insulin Aspart 100 Units/Ml 3 Ml Pen) 0 units SC ACHS [facility] Stop: 11/13/20 16:29 Lisinopril (Lisinopril 10 Mg Tab) 10 mg PO DAILY ERICA Stop: 11/13/20 03:59 Last Admin: 10/14/20 04:35 Dose: 10 mg Documented by: Miscellaneous (Carbohydrates For Hypoglycemia ) 15 - 30 gm PO UD PRN PRN Reason: Hypoglycemia Protocol Stop: 11/12/20 22:12 Morphine Sulfate (Morphine Sulfate 4 Mg/Ml 1 Ml Carp\Vial) 4 mg IV Q6H PRN PRN Reason: Pain Stop: 10/27/20 22:12 Last Admin: 10/14/20 08:19 Dose: 4 mg Documented by: Ondansetron HCl (Ondansetron Inj 2 Mg/Ml 2 Ml Vial) 4 mg IV Q8H PRN PRN Reason: Nausea And Vomiting Stop: 11/13/20 08:01 Last Admin: 10/14/20 08:19 Dose: 4 mg Documented by: Pantoprazole Sodium (Pantoprazole 40 Mg Tab) 40 mg PO DAILY ERICA Stop: 11/13/20 08:59 Last Admin: 10/14/20 08:24 Dose: 40 mg Documented by: Polyethylene Glycol (Polyethylene (Miralax) 17 Gm Pack) 17 gm PO DAILY PRN PRN Reason: Constipation Stop: 11/12/20 21:18 Promethazine HCl (Promethazine Hcl 25 Mg Supp) 25 mg [place] Q6H PRN PRN Reason: Nausea And Vomiting Stop: 11/13/20 08:01 (1) Cholelithiasis Biliary obstruction: without biliary obstruction Cholecystitis presence: without cholecystitis Cholelithiasis location: gallbladder Qualified Code(s): K80.20 - Calculus of gallbladder without cholecystitis without obstruction
--- NOTE | 2020-10-14 16:32 | Surgery Consultation ---
Date of Consultation October 14, 2020 Assessment & Plan (1) Pancreatitis: 65 year old male with pancreatitis. Most likely etiology is increased ozempic dose as this is a known side effect. Single large gallstone unlikely to create pancreatitis. Will obtain RUQUS to assess for other smaller stones. No cholecystectomy planned at this time patient advised not to continue ozempic RUQUS patient may follow up as outpatient to discuss cholecystectomy d/w patient, questions answered (2) Cholelithiasis: History of Present Illness Attending Physician: Sally Prater DO History of Present Illness 65 year old male admitted for pancreatitis. Recently increase dose of Ozempic, and 2 days later developed epigastric pain radiating to back. Feels better now. Surgery consulted because CT showed large gallstone. Single episode of post prandial RUQ pain and chest pain a few months ago, seen at [facility] and had single large gallstone. This is much different. Prior prostatectomy. Allergies Allergy/AdvReac Type Severity Reaction Status Date / Time semaglutide [From Ozempic] AdvReac Mild pancreatiti Verified 10/13/20 22:56 s Home Medications Medication Instructions Recorded Confirmed Type Medical Marijuana 1 dose INHALATION DIRECTED PRN 05/22/20 10/13/20 History glipizide 5 mg PO QDL 05/22/20 10/13/20 History lisinopril 5 mg PO QDL 05/22/20 10/13/20 History aspirin 0 mg PO DIRECTED PRN 10/13/20 10/13/20 History semaglutide [Ozempic] 0.5 mg SUBCUT WK 10/13/20 10/13/20 History Patient History Medical History Chronic back pain Diabetes mellitus, type 2 Hypertension Myocardial Infarction 15 yrs ago> no further issues/ no cath > does not follow cardio Osteoarthritis Prostate cancer 10 yrs ago > surgically removed > no chemo Spinal stenosis Surgical History History of arthroscopy right shoulder History of cataract surgery LEFT History of colonoscopy History of esophagogastroduodenoscopy (EGD) History of lumbar surgery History of prostatectomy History of tonsillectomy History of tooth extraction Family History Mother Diabetes Brother Diabetes Social History Smoking Status: Former smoker Tobacco Type: Cigarettes Second Hand Exposure: No; Do You Dip or Chew Tobacco: No; Tobacco Cessation Education Requested by Patient: No Hx Alcohol Use: Yes Alcohol type: beer Hx Substance Use: Yes Last Used Substance: Days (ago) Substance Use Type Other:: ONLY [facility] Preferred Language: [place] Communication Ability: Effective Product Safety Test Engineer Required: No Beliefs That Will Affect Care: Zoroastrian Zoroastrian Beliefs: Buddhist (Episcopalian). Current Living Situation: Spouse Other Information That Helps Us Care for You: No Feels Safe at Home: Yes Safety Concerns: Feels Safe At This Time Assistive Devices: None Review of Systems Review of Systems: All systems reviewed & are unremarkable except as noted in HPI & below Physical Exam Constitutional: WD/WN, vitals as above Respiratory: normal respiratory effort, lungs clear to auscultation Cardiovascular: RRR, no murmur, no edema Gastrointestinal (Abdomen): Percussion/Palpation: + abdomen tender (epigastrium) and abdomen soft; no guarding, abdomen not rigid, no hepatosplenomegaly and no hernia Results & Data ([facility]) Vital Signs (Past 12 Hours) Vital Signs Temp Pulse Resp BP Pulse Ox 10/14/20 07:28 36.3 C L 70 16 158/93 H 95 Laboratory Results Laboratory Results - last 24 hr 10/13/20 10/13/20 10/13/20 16:41 16:58 16:58 WBC 14.50 H RBC 4.96 Hgb 15.7 Hct 43.7 MCV 88.1 MCH 31.7 MCHC 35.9 RDW Std Deviation 40.1 RDW Coeff of [place] 12.6 Plt Count 310 MPV 10.9 H Immature Gran % (Auto) 0.3 Neut % (Auto) 68.3 Lymph % (Auto) 23.0 [place] % (Auto) 7.4 Eos % (Auto) 0.9 Baso % (Auto) 0.1 Neut # (Auto) 9.90 H Lymph # (Auto) 3.33 [place] # (Auto) 1.08 H Eos # (Auto) 0.13 Baso # (Auto) 0.02 Immature Gran # (Auto) 0.04 H Sodium Potassium Chloride Carbon Dioxide Anion Gap BUN Creatinine Est Cr Clr Drug Dosing Est GFR ( Amer) Est GFR (Non-Af Amer) BUN/Creatinine Ratio Glucose POC Glucose Estimat Average Glucose Pending Hemoglobin A1c Pending Lactate 1.5 Calcium Magnesium Total Bilirubin AST ALT Alkaline Phosphatase Troponin I NT-Pro-B Natriuret Pep Total Protein Albumin Globulin Albumin/Globulin Ratio Triglycerides Lipase Urine Color Urine Appearance Urine pH Ur Specific [place] Urine Protein Urine Glucose (UA) Urine Ketones Urine Blood Urine Nitrite Urine Bilirubin Urine Urobilinogen Ur Leukocyte Esterase Urine Opiates Screen U Codeine Confrm GC/MS Ur Morphine (GC/MS) Ur Hydrocodone (GC/MS) Ur Norhydrocodone Ur Noroxycodone Urine Oxycodone (GC/MS) U Oxymorphone GC/MS Ur Methadone, Qual Ur Hydromorphone (GC/MS) Urine Barbiturates Ur Phencyclidine (PCP) U Amphetamin/Meth Scrn MDMA (Ecstasy) Screen U OH-Alprazolam Confrm U Benzodiazepines Scrn 7-Amino Clonazepam Ur Nordiazepam Confirm U OH-ethylflurazepam U Lorazepam Cnf GC/MS U Oxazepam Confm GC/MS Ur Temazepam Confirm U OH-Triazolam Confirm U OH-Midazolam Confirm Ur Cocaine Metabolite U Marijuana (THC) Screen U Marijuana THC Carboxy Drug Screen Comment COVID-19 Eval Order SARS-CoV-2 (PCR) 10/13/20 10/13/20 10/13/20 16:58 20:17 20:17 WBC RBC Hgb Hct MCV MCH MCHC RDW Std Deviation RDW Coeff of [place] Plt Count MPV Immature Gran % (Auto) Neut % (Auto) Lymph % (Auto) [place] % (Auto) Eos % (Auto) Baso % (Auto) Neut # (Auto) Lymph # (Auto) [place] # (Auto) Eos # (Auto) Baso # (Auto) Immature Gran # (Auto) Sodium 132 L Potassium 4.0 Chloride 99 Carbon Dioxide 29 Anion Gap 4.0 BUN 13 Creatinine 0.85 Est Cr Clr Drug Dosing 95.5 Est GFR ( Amer) 105.2 Est GFR (Non-Af Amer) 90.8 BUN/Creatinine Ratio 15.4 Glucose 194 H POC Glucose Estimat Average Glucose Hemoglobin A1c Lactate Calcium 9.2 Magnesium 1.7 L Total Bilirubin 0.4 AST 14 L ALT 32 Alkaline Phosphatase 108 Troponin I < 0.015 NT-Pro-B Natriuret Pep 54 Total Protein 7.6 Albumin 3.7 Globulin 3.9 Albumin/Globulin Ratio 0.9 Triglycerides 362 H Lipase 774 H Urine Color Urine Appearance Urine pH Ur Specific [place] Urine Protein Urine Glucose (UA) Urine Ketones Urine Blood Urine Nitrite Urine Bilirubin Urine Urobilinogen Ur Leukocyte Esterase Urine Opiates Screen U Codeine Confrm GC/MS Ur Morphine (GC/MS) Ur Hydrocodone (GC/MS) Ur Norhydrocodone Ur Noroxycodone Urine Oxycodone (GC/MS) U Oxymorphone GC/MS Ur Methadone, Qual Ur Hydromorphone (GC/MS) Urine Barbiturates Ur Phencyclidine (PCP) U Amphetamin/Meth Scrn MDMA (Ecstasy) Screen U OH-Alprazolam Confrm U Benzodiazepines Scrn 7-Amino Clonazepam Ur Nordiazepam Confirm U OH-ethylflurazepam U Lorazepam Cnf GC/MS U Oxazepam Confm GC/MS Ur Temazepam Confirm U OH-Triazolam Confirm U OH-Midazolam Confirm Ur Cocaine Metabolite U Marijuana (THC) Screen U Marijuana THC Carboxy Drug Screen Comment COVID-19 Eval Order Covid19 at [facility] SARS-CoV-2 (PCR) NEGATIVE 10/13/20 10/14/20 10/14/20 22:59 00:06 00:06 WBC RBC Hgb Hct MCV MCH MCHC RDW Std Deviation RDW Coeff of [place] Plt Count MPV Immature Gran % (Auto) Neut % (Auto) Lymph % (Auto) [place] % (Auto) Eos % (Auto) Baso % (Auto) Neut # (Auto) Lymph # (Auto) [place] # (Auto) Eos # (Auto) Baso # (Auto) Immature Gran # (Auto) Sodium Potassium Chloride Carbon Dioxide Anion Gap BUN Creatinine Est Cr Clr Drug Dosing Est GFR ( Amer) Est GFR (Non-Af Amer) BUN/Creatinine Ratio Glucose POC Glucose 157 H Estimat Average Glucose Hemoglobin A1c Lactate Calcium Magnesium Total Bilirubin AST ALT Alkaline Phosphatase Troponin I NT-Pro-B Natriuret Pep Total Protein Albumin Globulin Albumin/Globulin Ratio Triglycerides Lipase Urine Color Yellow Urine Appearance Clear Urine pH 5.0 Ur Specific [place] 1.021 Urine Protein Negative Urine Glucose (UA) Negative Urine Ketones Negative Urine Blood Negative Urine Nitrite Negative Urine Bilirubin Negative Urine Urobilinogen Negative Ur Leukocyte Esterase Negative Urine Opiates Screen Pos H U Codeine Confrm GC/MS Ur Morphine (GC/MS) Ur Hydrocodone (GC/MS) Ur Norhydrocodone Ur Noroxycodone Urine Oxycodone (GC/MS) U Oxymorphone GC/MS Ur Methadone, Qual Neg Ur Hydromorphone (GC/MS) Urine Barbiturates Neg Ur Phencyclidine (PCP) Neg U Amphetamin/Meth Scrn Neg MDMA (Ecstasy) Screen Neg U OH-Alprazolam Confrm U Benzodiazepines Scrn Pos H 7-Amino Clonazepam Ur Nordiazepam Confirm U OH-ethylflurazepam U Lorazepam Cnf GC/MS U Oxazepam Confm GC/MS Ur Temazepam Confirm U OH-Triazolam Confirm U OH-Midazolam Confirm Ur Cocaine Metabolite Neg U Marijuana (THC) Screen Pos H U Marijuana THC Carboxy Drug Screen Comment COVID-19 Eval Order SARS-CoV-2 (PCR) 10/14/20 10/14/20 10/14/20 00:06 06:15 07:19 WBC 10.79 RBC 4.66 L Hgb 14.4 Hct 41.4 L MCV 88.8 MCH 30.9 MCHC 34.8 RDW Std Deviation 41.0 RDW Coeff of [place] 12.6 Plt Count 260 MPV 10.6 H Immature Gran % (Auto) 0.1 Neut % (Auto) 62.4 Lymph % (Auto) 29.6 [place] % (Auto) 6.7 Eos % (Auto) 1.0 Baso % (Auto) 0.2 Neut # (Auto) 6.74 H Lymph # (Auto) 3.19 [place] # (Auto) 0.72 H Eos # (Auto) 0.11 Baso # (Auto) 0.02 Immature Gran # (Auto) 0.01 Sodium Potassium Chloride Carbon Dioxide Anion Gap BUN Creatinine Est Cr Clr Drug Dosing Est GFR ( Amer) Est GFR (Non-Af Amer) BUN/Creatinine Ratio Glucose POC Glucose 168 H Estimat Average Glucose Hemoglobin A1c Lactate Calcium Magnesium Total Bilirubin AST ALT Alkaline Phosphatase Troponin I NT-Pro-B Natriuret Pep Total Protein Albumin Globulin Albumin/Globulin Ratio Triglycerides Lipase Urine Color Urine Appearance Urine pH Ur Specific [place] Urine Protein Urine Glucose (UA) Urine Ketones Urine Blood Urine Nitrite Urine Bilirubin Urine Urobilinogen Ur Leukocyte Esterase Urine Opiates Screen U Codeine Confrm GC/MS Pending Ur Morphine (GC/MS) Pending Ur Hydrocodone (GC/MS) Pending Ur Norhydrocodone Pending Ur Noroxycodone Pending Urine Oxycodone (GC/MS) Pending U Oxymorphone GC/MS Pending Ur Methadone, Qual Ur Hydromorphone (GC/MS) Pending Urine Barbiturates Ur Phencyclidine (PCP) U Amphetamin/Meth Scrn MDMA (Ecstasy) Screen U OH-Alprazolam Confrm Pending U Benzodiazepines Scrn 7-Amino Clonazepam Pending Ur Nordiazepam Confirm Pending U OH-ethylflurazepam Pending U Lorazepam Cnf GC/MS Pending U Oxazepam Confm GC/MS Pending Ur Temazepam Confirm Pending U OH-Triazolam Confirm Pending U OH-Midazolam Confirm Pending Ur Cocaine Metabolite U Marijuana (THC) Screen U Marijuana THC Carboxy Pending Drug Screen Comment Pending COVID-19 Eval Order SARS-CoV-2 (PCR) 10/14/20 10/14/20 07:19 12:17 WBC RBC Hgb Hct MCV MCH MCHC RDW Std Deviation RDW Coeff of [place] Plt Count MPV Immature Gran % (Auto) Neut % (Auto) Lymph % (Auto) [place] % (Auto) Eos % (Auto) Baso % (Auto) Neut # (Auto) Lymph # (Auto) [place] # (Auto) Eos # (Auto) Baso # (Auto) Immature Gran # (Auto) Sodium 132 L Potassium 4.2 Chloride 101 Carbon Dioxide 26 Anion Gap 5.0 BUN 10 Creatinine 0.75 Est Cr Clr Drug Dosing 108.2 Est GFR ( Amer) 110.8 Est GFR (Non-Af Amer) 95.6 BUN/Creatinine Ratio 13.2 Glucose 152 H POC Glucose 142 H Estimat Average Glucose Hemoglobin A1c Lactate Calcium 8.8 Magnesium 1.8 Total Bilirubin 0.5 AST 13 L ALT 26 Alkaline Phosphatase 94 Troponin I NT-Pro-B Natriuret Pep Total Protein 7.0 Albumin 3.4 Globulin 3.6 Albumin/Globulin Ratio 1.0 Triglycerides Lipase Urine Color Urine Appearance Urine pH Ur Specific [place] Urine Protein Urine Glucose (UA) Urine Ketones Urine Blood Urine Nitrite Urine Bilirubin Urine Urobilinogen Ur Leukocyte Esterase Urine Opiates Screen U Codeine Confrm GC/MS Ur Morphine (GC/MS) Ur Hydrocodone (GC/MS) Ur Norhydrocodone Ur Noroxycodone Urine Oxycodone (GC/MS) U Oxymorphone GC/MS Ur Methadone, Qual Ur Hydromorphone (GC/MS) Urine Barbiturates Ur Phencyclidine (PCP) U Amphetamin/Meth Scrn MDMA (Ecstasy) Screen U OH-Alprazolam Confrm U Benzodiazepines Scrn 7-Amino Clonazepam Ur Nordiazepam Confirm U OH-ethylflurazepam U Lorazepam Cnf GC/MS U Oxazepam Confm GC/MS Ur Temazepam Confirm U OH-Triazolam Confirm U OH-Midazolam Confirm Ur Cocaine Metabolite U Marijuana (THC) Screen U Marijuana THC Carboxy Drug Screen Comment COVID-19 Eval Order SARS-CoV-2 (PCR) Diagnostic Findings CT SCAN OF THE ABDOMEN AND PELVIS WITH IV CONTRAST CLINICAL HISTORY: Epigastric abdominal pain. Elevated lipase. COMPARISON STUDY: No priors. TECHNIQUE: Following the IV administration of 95 cc of Optiray 320, CT scan of the abdomen and pelvis is performed from the lung bases to the proximal femora. Images are reviewed in the axial, sagittal, and coronal planes. IV contrast was administered without complication. A dose lowering technique was utilized adhering to the principles of ALARA. CT DOSE: 641.64 mGy.cm FINDINGS: Lung bases: The heart is normal in size and without pericardial effusion. The coronary arteries are densely calcified. There is a small hiatal hernia. Circumferential wall thickening is suggested in the distal esophagus. The lung bases are clear noting bibasilar scarring/atelectasis. Liver: The contrast-enhanced liver is mildly enlarged measuring over 18 cm in length. The liver demonstrates diffusely diminished attenuation consistent with hepatic steatosis. There is no intrahepatic biliary ductal dilatation. The h epatic veins and portal veins are patent. Gallbladder: A large calcified gallstone measures at least 3.3 cm. There is no CT evidence of acute cholecystitis. Spleen: Normal in size and attenuation. Pancreas: The pancreas is normal in size. Inflammatory changes identified around the pancreatic head and uncinate process. There is trace peripancreatic fluid, and the appearance favors acute pancreatitis. The gland enhances homogeneously. The pancreatic duct is normal in caliber. No organized.] Fluid collection is identified. The splenic vein is patent. Adrenal glands: Low-attenuation left adrenal nodules measure up to 12 mm. These likely represent adenomas but cannot be definitively characterized due to the presence of IV contrast. The right adrenal gland is normal in appearance. Kidneys: The contrast enhanced kidneys are normal in size and without hydronephrosis. The kidneys enhance symmetrically. A 10 mm cyst is noted in the right lower pole. Abdominal vasculature: The abdominal aorta is normal in course and caliber noting advanced atherosclerotic calcification. Bowel: There is moderate colonic diverticulosis without CT evidence of acute diverticulitis. Fecal retention is noted throughout the colon. The appendix is well-visualized and normal. Mild wall thickening is noted in the duodenum adjacent to the pancreatic head. Peritoneum: There is no intraperitoneal free air or abdominal ascites. Lymphadenopathy: Prominent peripancreatic lymph nodes are likely reactive. No pathologically enlarged lymph nodes are seen in the abdomen or pelvis. Pelvic viscera: The prostate gland is surgically absent. The bladder is normal as visualized. Skeletal structures: The skeletal structures are osteopenic. There is a minimal superior endplate compression deformity of L2. Moderate lumbosacral spondylosis is observed. Degenerative sclerosis is noted in the pubic symphysis. No lytic or blastic lesions are seen. IMPRESSION: 1. Findings are typical for acute pancreatitis as detailed above. 2. The gland enhances homogeneously and no organized peripancreatic collection is identified. 3. Wall thickening of the duodenum is likely related to adjacent pancreatitis. 4. Hepatomegaly and hepatic steatosis. 5. Advanced coronary artery calcification. 6. Cholelithiasis. 7. Wall thickening is suggested in the distal esophagus. Correlate clinically for evidence of esophagitis. 8. Colonic diverticulosis without CT evidence of acute diverticulitis. 9. Status post prostatectomy. 10. Additional findings as above. PG Care Time/CCT Total # of Minutes Spent Total Time Spent with Patient: Total time spent is greater than 50% in coordination of care (as documented) at patient's floor/unit and/or counseling patient: Coding Level of Care Code 23895 Initial Inpt Care Lvl 2 Diagnoses Pancreatitis K85.90 Acute pancreatitis complication: no infection or necrosis Chronicity: acute Pancreatitis type: unspecified pancreatitis type Cholelithiasis K80.20 Biliary obstruction: without biliary obstruction Cholecystitis presence: without cholecystitis Cholelithiasis location: gallbladder (1) Pancreatitis Acute pancreatitis complication: no infection or necrosis Chronicity: acute Pancreatitis type: unspecified pancreatitis type Qualified Code(s): K85.90 - Acute pancreatitis without necrosis or infection, unspecified (2) Cholelithiasis Biliary obstruction: without biliary obstruction Cholecystitis presence: without cholecystitis Cholelithiasis location: gallbladder Qualified Code(s): K80.20 - Calculus of gallbladder without cholecystitis without obstruction
[2020-10-14] MEDS ORDERED: INSULIN GLARGINE SOLOSTAR 100 UNITS/ML 3 ML PEN SC SCH (21:00)
--- NOTE | 2020-10-15 00:19 | Electrocardiogram Report ---
Test Reason : Blood Pressure : / mmHG Vent. Rate : 087 BPM Atrial Rate : 087 BPM P-R Int : 134 ms QRS Dur : 098 ms QT Int : 376 ms P-R-T Axes : 034 082 -03 degrees QTc Int : 452 ms Normal sinus rhythm Inferior infarct (cited on or before 13-MAY-2005) Abnormal ECG When compared with ECG of 13-MAY-2005 18:34, No significant change was found Confirmed by Bunny Boone ([id number]) on 10/15/2020 12:19:06 AM Referred By: REFERRED SELF Confirmed By:Bunny Boone
[2020-10-15] MEDS: MoRPHine SULFATE 4 MG/ML 1 ML CARP\\VIAL IV PRN (03:01)
--- NOTE | 2020-10-15 07:20 | Ultrasound Report ---
ULTRASOUND RIGHT UPPER QUADRANT ABDOMEN CLINICAL HISTORY: Pancreatitis. COMPARISON STUDY: Abdominal CT dated 10/13/2020. TECHNIQUE: Real-time, grayscale, and color flow sonography of the right upper quadrant of the abdomen was performed. Images are reviewed in the transverse and longitudinal planes. FINDINGS: Liver: The liver is enlarged and demonstrates heterogeneous increased echotexture consistent with juanito atosis. Fatty sparing is noted adjacent to gallbladder fossa. There is no intrahepatic biliary ductal dilatation. The main portal vein is patent. Gallbladder: A large shadowing calcified gallstone measures at least 3.5 cm. The gallbladder is other terry normal in appearance. There is no gallbladder wall thickening or pericholecystic fluid. A sonogr aphic Raya's sign is reportedly absent. The common bile duct measures up to 0.6 cm in diameter. Pancreas: Visualized portions of the pancreatic head and body are normal in appearance. Right kidney: Survey images of the right kidney demonstrate normal size and echotexture. There is no hydronephrosis. A subcentimeter cyst is noted in the lower pole. Ascites: None. IMPRESSION: 1. There is a large shadowing gallstone with no sonographic evidence of acute cholecystitis. 2. The liver is enlarged and steatotic. ACT 112: Negative or not required by law. Electronically signed by: Jason Almanza M.D. 10/15/2020 7:18 AM
[2020-10-15 07:45] LABS: Estimated Average Glucose 180 mg/dl; Hemoglobin A1C 7.9 % (4.5-5.6)
[2020-10-15 09:14] LABS: Mean Corpuscular Hemoglobin 31.7 pg (25-34); Mean Corpuscular Hgb Conc 36.4 g/dL (32-36); Mean Corpuscular Volume 87.1 fL (80-100); Mean Platelet Volume 10.6 fL (7.4-10.4); Platelet Count 278 K/uL (130-400); RDW Coefficient of Variation 12.6 % (11.5-14.5); RDW Standard Deviation 40.3 fL (36.4-46.3); Red Blood Count 5.05 M/uL (4.7-6.1)
[2020-10-15] MEDS: PANTOprazole 40 MG TAB PO SCH (09:49)
[2020-10-15] MEDS: lisinopril 10 MG TAB PO SCH (09:50)
[2020-10-15] MEDS: ENOXAPARIN INJ 40 MG/0.4 ML SYR SQ SCH (09:50)
[2020-10-15] MEDS: INSULIN ASPART 100 UNITS/ML 3 ML PEN SC SCH ×2 (09:51→12:53)
[2020-10-15 09:59] LABS: BUN Creatinine Ratio 16.2 (10-20); Calcium 9.3 mg/dl (8.5-10.1); Creatinine Clr Calc Pharmacy 105.4 ml/min; Est GFR (African American) 109.6 ml/min; Est GFR (Non-African American) 94.6 ml/min; Magnesium 1.9 mg/dl (1.8-2.4); Potassium 4.2 mmol/L (3.5-5.1)
--- NOTE | 2020-10-15 10:28 | Surgery Progress Note ---
Date of Service October 15, 2020 Assessment & Plan (1) Pancreatitis: lipase normal U/S single large gallstone, no inflammatory changes med vs biliary pancreatitis ok for d/c, can f/u in clinic prn Admission and Anticipated Discharge Date Admission Date: October 13, 2020 Supervising Physician Co-Signing Physician Notes agree with above, RUQUS this morning showed single large stone, unlikely cause of pancreatitis. Patient does not desire surgery at this time. surgery will sign off. Subjective pain resolved, tolerating diet Physical Exam Gastrointestinal (Abdomen): Inspection/Auscultation: + abdomen distended (slight) Percussion/Palpation: abdomen soft; abdomen nontender Results & Data ([facility]) Vital Signs (Past 12 Hours) Vital Signs Temp Pulse Pulse Resp BP BP Pulse Ox 10/15/20 07:30 36.7 C 81 18 129/84 91 10/14/20 22:27 36.7 C 79 18 149/91 H 143/87 H 93 PG Care Time/CCT Total # of Minutes Spent Total Time Spent with Patient: Total time spent is greater than 50% in coordination of care (as documented) at patient's floor/unit and/or counseling patient: Coding Level of Care Code 25506 Subseq Hosp Care Lvl 1 Diagnoses Pancreatitis K85.90 Acute pancreatitis complication: no infection or necrosis Chronicity: acute Pancreatitis type: unspecified pancreatitis type (1) Pancreatitis Acute pancreatitis complication: no infection or necrosis Chronicity: acute Pancreatitis type: unspecified pancreatitis type Qualified Code(s): K85.90 - Acute pancreatitis without necrosis or infection, unspecified
--- NOTE | 2020-10-16 14:13 | Discharge Summary ---
Date of Service October 16, 2020 Admission HPI Per Admitting Provider Chief Complaint: Abdominal pain Primary Care Provider: Aubree Moura PA-C History obtained from patient, family, and records. Medical history significant for CAD, hypertension, hyperlipidemia, DM2 on oral medications, cholelithiasis, chronic pain, chronic cannabis use, chronic hyponatremia, prostate cancer status post surgery past tobacco abuse. Last March 2020, patient seen at [facility] ER for epigastric pain following food overindulgence. Gallbladder ultrasound showed cholelithiasis. CT abdomen pelvis showed cholelithiasis with gallbladder distention and questionable gallbladder wall thickening. Patient discharged from the ER. Outpatient surgery consultation for biliary colic recommended as per patient recollection. Patient started on Ozempic 0.25 mg subcutaneous weekly about 5 weeks ago for poorly controlled DM. Weekly dose increased to 0.5 mg last week with BSG of 300s at home from time to time. A few days later, patient noted intermittent epigastric pain somewhat burning with some radiation to the chest. No fever, no chills, no S OB. Admits to daily intake of 2 tablets of aspirin 500 mg for chronic pain for some time now. No black/bloody stools. No BM the last 4 days which is unusual for him. No BM despite stool softener and home enema administration. No unusual weight loss. No recent EtOH intake as per patient. Patient brought to ER by with more constant discomfort. Admission Exam Per Admitting Provider Physical Exam: GENERAL: Pleasant, slightly uncomfortable, no respiratory distress SKIN: Normal color, warm HEENT: [place] palpebral conjunctivae, no ptosis, dry buccal mucosa NECK : Supple, no tenderness CHEST : CTA, no tenderness HEART : RRR, no obvious murmurs ABDOMEN: Some distention, epigastric tenderness EXTREMITIES : No LE swelling/tenderness, no other conspicuous deformities noted NEUROLOGIC : Coherent, no facial asymmetry, no other gross focality Principal Diagnosis Acute pancreatitis Discharge Exam CONSTITUTIONAL: WNWD, vitals as above, generally well-appearing EYES: normal conjunctivae, no scleral icterus ENT: external ear and nose normal, MMM RESPIRATORY: clear to auscultation bilaterally, no crackles, rales or wheezes, normal respiratory effort CARDIOVASCULAR: regular rate and rhythm, S1 and 2 heard without murmurs, gallops or rubs, no JVD, no peripheral edema GASTROINTESTINAL: normal bowel sounds, soft, nontender, nondistended. No CVA tenderness. MUSCULOSKELETAL: strength 5/5 throughout, head is normocephalic and atraumatic SKIN: warm and dry NEUROLOGIC: CN 2-12 grossly intact, no sensory deficit, normal cognition, normal speech, no tremor PSYCHIATRIC: alert cooperative and oriented to person, place and time. Discharge Data Allergies Allergy/AdvReac Type Severity Reaction Status Date / Time semaglutide [From Ozempic] AdvReac Mild pancreatiti Verified 10/13/20 22:56 s Consultations 10/13/20 20:02 ED Decision to Admit Stat 10/13/20 22:13 Consult Gastroenterology Routine 10/14/20 15:26 Consult General Surgery Routine Ordered Studies Laboratory Results WBC 10.30 K/uL (4.8-10.8) 10/15/20 08:51 RBC 5.05 M/uL (4.7-6.1) 10/15/20 08:51 Hgb 16.0 g/dL (14.0-18.0) 10/15/20 08:51 Hct 44.0 % (42-52) 10/15/20 08:51 MCV 87.1 fL (80-100) 10/15/20 08:51 MCH 31.7 pg (25-34) 10/15/20 08:51 MCHC 36.4 g/dL (32-36) H 10/15/20 08:51 RDW Std Deviation 40.3 fL (36.4-46.3) 10/15/20 08:51 RDW Coeff of [place] 12.6 % (11.5-14.5) 10/15/20 08:51 Plt Count 278 K/uL (130-400) 10/15/20 08:51 MPV 10.6 fL (7.4-10.4) H 10/15/20 08:51 Immature Gran % (Auto) 0.1 % 10/14/20 07:19 Neut % (Auto) 62.4 % 10/14/20 07:19 Lymph % (Auto) 29.6 % 10/14/20 07:19 [place] % (Auto) 6.7 % 10/14/20 07:19 Eos % (Auto) 1.0 % 10/14/20 07:19 Baso % (Auto) 0.2 % 10/14/20 07:19 Neut # (Auto) 6.74 K/uL (1.4-6.5) H 10/14/20 07:19 Lymph # (Auto) 3.19 K/uL (1.2-3.4) 10/14/20 07:19 [place] # (Auto) 0.72 K/uL (0.11-0.59) H 10/14/20 07:19 Eos # (Auto) 0.11 K/uL (0-0.5) 10/14/20 07:19 Baso # (Auto) 0.02 K/uL (0-0.2) 10/14/20 07:19 Immature Gran # (Auto) 0.01 K/uL (0.00-0.02) 10/14/20 07:19 Sodium 134 mmol/L (136-145) L 10/15/20 08:51 Potassium 4.2 mmol/L (3.5-5.1) 10/15/20 08:51 Chloride 101 mmol/L (98-107) 10/15/20 08:51 Carbon Dioxide 26 mmol/L (21-32) 10/15/20 08:51 Anion Gap 7.0 (3-11) 10/15/20 08:51 BUN 12 mg/dl (7-18) 10/15/20 08:51 Creatinine 0.77 mg/dl (0.6-1.4) 10/15/20 08:51 Est Cr Clr Drug Dosing 105.4 ml/min 10/15/20 08:51 Est GFR ( Amer) 109.6 ml/min 10/15/20 08:51 Est GFR (Non-Af Amer) 94.6 ml/min 10/15/20 08:51 BUN/Creatinine Ratio 16.2 (10-20) 10/15/20 08:51 Glucose 138 mg/dl (70-99) H 10/15/20 08:51 POC Glucose 131 mg/dl (70-99) H 10/15/20 12:18 Estimat Average Glucose 180 mg/dl 10/13/20 16:41 Hemoglobin A1c 7.9 % (4.5-5.6) H 10/13/20 16:41 Lactate 1.5 mmol/L (0.4-2.0) 10/13/20 16:58 Calcium 9.3 mg/dl (8.5-10.1) 10/15/20 08:51 Magnesium 1.9 mg/dl (1.8-2.4) 10/15/20 08:51 Total Bilirubin 0.5 mg/dl (0.2-1) 10/14/20 07:19 AST 13 U/L (15-37) L 10/14/20 07:19 ALT 26 U/L (12-78) 10/14/20 07:19 Alkaline Phosphatase 94 U/L (45-117) 10/14/20 07:19 Troponin I < 0.015 ng/ml (0-0.045) 10/13/20 16:58 NT-Pro-B Natriuret Pep 54 pg/ml (0-900) 10/13/20 16:58 Total Protein 7.0 gm/dl (6.4-8.2) 10/14/20 07:19 Albumin 3.4 gm/dl (3.4-5.0) 10/14/20 07:19 Globulin 3.6 gm/dl (2.5-4.0) 10/14/20 07:19 Albumin/Globulin Ratio 1.0 (0.9-2) 10/14/20 07:19 Triglycerides 362 mg/dl (0-150) H 10/13/20 16:58 Lipase 246 U/L (73-393) 10/15/20 08:51 Specimen Hemolysis 10/15/20 08:51 Urine Color Yellow 10/14/20 00:06 Urine Appearance Clear (Clear) 10/14/20 00:06 Urine pH 5.0 (4.5-7.5) 10/14/20 00:06 Ur Specific [place] 1.021 (1.000-1.030) 10/14/20 00:06 Urine Protein Negative (Negative) 10/14/20 00:06 Urine Glucose (UA) Negative (Negative) 10/14/20 00:06 Urine Ketones Negative (Negative) 10/14/20 00:06 Urine Blood Negative (Negative) 10/14/20 00:06 Urine Nitrite Negative (Negative) 10/14/20 00:06 Urine Bilirubin Negative (Negative) 10/14/20 00:06 Urine Urobilinogen Negative (Negative) 10/14/20 00:06 Ur Leukocyte Esterase Negative (Negative) 10/14/20 00:06 Urine Opiates Screen Pos (Neg) H 10/14/20 00:06 Ur Methadone, Qual Neg (Neg) 10/14/20 00:06 Urine Barbiturates Neg (Neg) 10/14/20 00:06 Ur Phencyclidine (PCP) Neg (Neg) 10/14/20 00:06 U Amphetamin/Meth Scrn Neg (Neg) 10/14/20 00:06 MDMA (Ecstasy) Screen Neg (Neg) 10/14/20 00:06 U Benzodiazepines Scrn Pos (Neg) H 10/14/20 00:06 Ur Cocaine Metabolite Neg (Neg) 10/14/20 00:06 U Marijuana (THC) Screen Pos (Neg) H 10/14/20 00:06 COVID-19 Eval Order Covid19 at [facility] 10/13/20 20:17 SARS-CoV-2 (PCR) NEGATIVE (Negative) 10/13/20 20:17 Impressions Chest X-Ray 10/13/20 16:41 SINGLE VIEW CHEST CLINICAL HISTORY: Atypical chest pain FINDINGS: An AP, portable, upright chest radiograph is compared to chest x-ray and chest CT dated 08/28/2006. The examination is degraded by portable technique and apical lordotic positioning. The heart is mildly enlarged noting atherosclerotic calcification of the thoracic aorta. Foci of platelike atelectasis are present at both lung bases. There is no airspace consolidation typical for pneumonia or large pleural effusion. No pneumothorax is seen. The bony thorax is grossly intact. Postoperative change is noted in the right shoulder. IMPRESSION: Mild cardiomegaly with no acute cardiopulmonary abnormality. ACT 112: Negative or not required by law. Electronically signed by: Jason Almanza M.D. 10/13/2020 5:19 PM Abdomen/Pelvis CT 10/13/20 17:37 CT SCAN OF THE ABDOMEN AND PELVIS WITH IV CONTRAST CLINICAL HISTORY: Epigastric abdominal pain. Elevated lipase. COMPARISON STUDY: No priors. TECHNIQUE: Following the IV administration of 95 cc of Optiray 320, CT scan of the abdomen and pelvis is performed from the lung bases to the proximal femora. Images are reviewed in the axial, sagittal, and coronal planes. IV contrast was administered without complication. A dose lowering technique was utilized adhering to the principles of ALARA. CT DOSE: 641.64 mGy.cm FINDINGS: Lung bases: The heart is normal in size and without pericardial effusion. The coronary arteries are densely calcified. There is a small hiatal hernia. Circumferential wall thickening is suggested in the distal esophagus. The lung bases are clear noting bibasilar scarring/atelectasis. Liver: The contrast-enhanced liver is mildly enlarged measuring over 18 cm in length. The liver demonstrates diffusely diminished attenuation consistent with hepatic steatosis. There is no intrahepatic biliary ductal dilatation. The hepatic veins and portal veins are patent. Gallbladder: A large calcified gallstone measures at least 3.3 cm. There is no CT evidence of acute cholecystitis. Spleen: Normal in size and attenuation. Pancreas: The pancreas is normal in size. Inflammatory changes identified around the pancreatic head and uncinate process. There is trace peripancreatic fluid, and the appearance favors acute pancreatitis. The gland enhances homogeneously. The pancreatic duct is normal in caliber. No organized.] Fluid collection is identified. The splenic vein is patent. Adrenal glands: Low-attenuation left adrenal nodules measure up to 12 mm. These likely represent adenomas but cannot be definitively characterized due to the presence of IV contrast. The right adrenal gland is normal in appearance. Kidneys: The contrast enhanced kidneys are normal in size and without hydronephrosis. The kidneys enhance symmetrically. A 10 mm cyst is noted in the right lower pole. Abdominal vasculature: The abdominal aorta is normal in course and caliber noting advanced atherosclerotic calcification. Bowel: There is moderate colonic diverticulosis without CT evidence of acute diverticulitis. Fecal retention is noted throughout the colon. The appendix is well-visualized and normal. Mild wall thickening is noted in the duodenum adjacent to the pancreatic head. Peritoneum: There is no intraperitoneal free air or abdominal ascites. Lymphadenopathy: Prominent peripancreatic lymph nodes are likely reactive. No pathologically enlarged lymph nodes are seen in the abdomen or pelvis. Pelvic viscera: The prostate gland is surgically absent. The bladder is normal as visualized. Skeletal structures: The skeletal structures are osteopenic. There is a minimal superior endplate compression deformity of L2. Moderate lumbosacral spondylosis is observed. Degenerative sclerosis is noted in the pubic symphysis. No lytic or blastic lesions are seen. IMPRESSION: 1. Findings are typical for acute pancreatitis as detailed above. 2. The gland enhances homogeneously and no organized peripancreatic collection is identified. 3. Wall thickening of the duodenum is likely related to adjacent pancreatitis. 4. Hepatomegaly and hepatic steatosis. 5. Advanced coronary artery calcification. 6. Cholelithiasis. 7. Wall thickening is suggested in the distal esophagus. Correlate clinically for evidence of esophagitis. 8. Colonic diverticulosis without CT evidence of acute diverticulitis. 9. Status post prostatectomy. 10. Additional findings as above. ACT 112: Negative or not required by law. Electronically signed by: Jason Almanza M.D. 10/13/2020 7:25 PM Liver Ultrasound 10/15/20 00:00 ULTRASOUND RIGHT UPPER QUADRANT ABDOMEN CLINICAL HISTORY: Pancreatitis. COMPARISON STUDY: Abdominal CT dated 10/13/2020. TECHNIQUE: Real-time, grayscale, and color flow sonography of the right upper quadrant of the abdomen was performed. Images are reviewed in the transverse and longitudinal planes. FINDINGS: Liver: The liver is enlarged and demonstrates heterogeneous increased echotexture consistent with steatosis. Fatty sparing is noted adjacent to gallbladder fossa. There is no intrahepatic biliary ductal dilatation. The main portal vein is patent. Gallbladder: A large shadowing calcified gallstone measures at least 3.5 cm. The gallbladder is otherwise normal in appearance. There is no gallbladder wall thickening or pericholecystic fluid. A sonographic Raya's sign is reportedly absent. The common bile duct measures up to 0.6 cm in diameter. Pancreas: Visualized portions of the pancreatic head and body are normal in appearance. Right kidney: Survey images of the right kidney demonstrate normal size and echotexture. There is no hydronephrosis. A subcentimeter cyst is noted in the lo wer pole. Ascites: None. IMPRESSION: 1. There is a large shadowing gallstone with no sonographic evidence of acute cholecystitis. 2. The liver is enlarged and steatotic. ACT 112: Negative or not required by law. Electronically signed by: Jason Almanza M.D. 10/15/2020 7:18 AM Hospital Course (1) Acute pancreatitis: Likely related to Ozempic use which should be discontinued at discharge. A1C is 7.9. Discussed MDD insulin, however, this is a big change at this point coming out of the hospital. He was intolerant of metformin in the past. Cont glipizide at [place] with close MTM follow up next week for adjustment of regimen with primary provider as outpatient when he is feeling better. For now, no oth er alcohol use reported. He does have cholelithiasis so general surgery saw him-no gallbladde removal recommended at this time. He did experience some postprandial pain with lunch on HD 2 and stayed an additional night for continued IVF and pain control. He felt much better prior to leaving and was tolerating food without issue. (2) Adverse drug effect: Pancreatitis likely related to Ozempic increase. Would recommend stopping this as above. (3) Cholelithiasis: Per surgery, no GB removal recommended at this time. (4) Cannabis dependence, daily use: uses medical marijuana-advised of the policy for this [facility]. Patient verbalized understanding. (5) Esophagitis: Circumferential wall thickening noted in the distal esophagus on CT a/p, possibly related to high dose aspirin taken daily for some time. This is for pain control. Would hold aspirin and continue with protonix. Follow-up with outpatient PCP. (6) Diabetes mellitus, type 2: Hold glipizide, used lantus/Novolog while hospitalized. A1C reflects poor control. (7) Hypertension: at goal, cont home lisinopril. Total Time Total Time Spent Total Time Spent (In Minutes): 60 Total Time Includes: Examination of the Patient, Discharge Planning, Medication Reconciliation and Communication With Other Providers Discharge Plan Discharge Items Patient Disposition: Home - Self-Care Reason For Visit: PANCREATITIS Discharge Diagnosis: Acute pancreatitis Condition on Discharge: Good Activity: Resume your previous activity Non-emergency contact: Primary Care Provider Call non-emergency contact if: you have any medication questions, your symptoms worsen, your pain is not controlled, your pain is worsening, your pain is unusual for you, your pain is concerning for you and you have a fever Follow-up/Referrals: Eron Hong DO, FACS [Physician] - (Call if you have any questions about gallbladder or have abdominal pain, nausea or vomiting) Aubree Moura PA-C [Primary Care Provider] - Diet: Carb Consistent or DM2 Addtl Attending Provider Instructions: Please take all medications as instructed on your discharge list below. You are being placed on an acid reducing medication, Protonix which is to treat presumed esophagitis in your lower esophagus. There was some thickening of this area seen on CT scan imaging possibly from the high amount of aspirin you are using for pain. Please continue to work with your physician to find alternatives to treat your pain other than aspirin, naproxen, or other non- steroidal anti-inflammatory drugs (NSAIDs). Follow-up evaluation may be warranted. Your OZEMPIC is being stopped as this may have contributed to symptoms causing this hospitalization. Please work with your PCP to adjust your diabetic therapy regimen for goal A1C <6.5. It is recommended that you follow-up with your PCP in one week to ensure you are doing well after going home. This appointment will be to review your medications, ensure symptoms are completely resolved, explore alternative pain therapy options and make adjustments to your diabetic therpay regimen. It was a pleasure taking care of you! Please call if you have any questions or problems. You can reach a [facility] hospitalist on duty at [facility] 24 hours a day by calling [phone]. Take care of yourself. Sally Prater DO [facility] Pending Studies at Discharge: No Stand-Alone Forms: My [facility], Smoking Cessation Medications and DC Order Prescriptions: New pantoprazole 40 mg Tablet,Delayed Release (Dr/Ec) 40 mg PO DAILY Qty: 30 RF: 0 Continued lisinopril 5 mg Tablet 5 mg PO QDL RF: 0 Medical Marijuana 1 dose inhalation DIRECTED PRN (Reason: NEEDED) RF: 0 Changed glipizide 5 mg Tablet 5 mg PO BID Qty: 60 RF: 0 Discontinued aspirin 500 mg Tablet 0 mg PO DIRECTED PRN (Reason: Pain) RF: 0 Ozempic 0.25 mg or 0.5 mg(2 mg/1.5 mL) pen injector 0.5 mg SUBCUT WK RF: 0 Discharge Orders: Discharge Order (Routine); Ordered 10/15/20 Ordered By: Sally Soares/Other Patient Handouts: Managing Type 2 Diabetes, A1C Admission Data Admit Date/Time: 10/14/20 12:05 Attending Provider: Sally Prater Admit Provider: Joe Solis Primary Care Provider: Aubree Moura Other Providers: Joe Solis ; Anastasiya Rodriguez ; Leslie Chairez ; Richelle Garcia ; Savannah Ramirez ; Talon Wyman ; Renetta Sheppard ; Cristine Vergara ; Reginaldo Ugarte ; Ellen Rogers ; Keshia Almeida ; Tarah Landis ; Brandie Colon ; Ag Blas ; Eron Hong Other Interventions: Discharge Summary Assessment (RN) Last Done: 10/15/20 14:15
[2020-10-18 10:01] LABS: 7-Aminoclonaz, Confirm NEGATIVE ng/mL (<25); Codeine Urine NEGATIVE ng/mL (<50); Hydro-Alp Ur, GC/MS 102 ng/mL (<25); Hydrocodone Urine NEGATIVE ng/mL (<50); Hydromor Urine 124 ng/mL (<50); Hydroxyethylflurazepam, Conf NEGATIVE ng/mL (<50); Hydroxymidazolam Ur, GC/MS NEGATIVE ng/mL (<50); Hydroxytriazolam NEGATIVE ng/mL (<50); Lorazepam, Ur GC/MS NEGATIVE ng/mL (<50); Marijuana Quant, GCMS Urine 659 ng/mL (<5); Morphine Urine 4400 ng/mL (<50); Nordiazepam, Confirm 110 ng/mL (<50); Norhydrocodone Conf Ur NEGATIVE ng/mL (<50); Noroxycodone Urine NEGATIVE ng/mL (<50); Oxazepam Ur, GC/MS 488 ng/mL (<50); Oxycodone Urine NEGATIVE ng/mL (<50); Oxymorph Urine NEGATIVE ng/mL (<50); Temazepam, Confirm 223 ng/mL (<50)
--- NOTE | 2020-10-24 11:35 | Coding Query ---
CODING QUERY To promote full compliance with coding requirements relating to patient care, provider participation is requested in all cases of radio electronics technician uncertainty. Please assist us with the question(s) below: Coding Question(s): Hyponatremia is documented on H&P but nowhere else in the account. Please clarify below: ( ) Patient with Hyponatremia ( ) Hyponatremia Ruled Out ( x Other Please Explain: The patient had a Na of 132 two times in 2020, and Dr. Solis documented chronic hyponatremia. I would agree with the diagnosis of hyponatremia, however, it was not an acute issue I was overly concerned with given prior levels and the absolute value of 132 given the clinical picture. Typically, this becomes more of an issue for acute treatment when the patient is either symptomatic or the value goes below 130. sms Thank you Claude Kraft Principal Diagnosis: "that condition established after study, to be chiefly responsible for occasioning the admission of the patient to the hospital for care." Co-Existing Principal Diagnosis: "when two or more diagnoses equally meet the criteria for principal diagnosis as determined by the circumstances of admission, diagnostic work up, and/or therapy provided, and the Alphabetic Index, Tabular List, or another coding guideline does not provide sequencing direction, any one of the diagnoses may be sequenced first." "When the physician has documented what appears to be a current diagnosis in the body of the record, but has not included the diagnosis in the final diagnostic statement, the physician should be asked whether the diagnosis should be added." (Source Coding Clinic 2 QTR90. p3-4) [place]
== END 2020-10-15 15:35 | disposition home or self-care (01) | DRG 440 ==
LOC: ED 15:51 → 3N 15:51